=== PATIENT | male | born 1955 | race Caucasian/White ===

== ENCOUNTER 2022-08-22 06:25 | Day surgery (SDC) | payer OTHER ==
[~2022-08-22] VITALS: Ht 182.9 cm; Wt 101.8 kg
[~2022-08-22 06:25] MED LIST: B COMPLEX1 EACH PO; PROBIOTIC1 EAC1 PO
[2022-08-22] MEDS ORDERED: KRILL OIL500 MG PO (06:45)
[2022-08-22] MEDS ORDERED: VITAMIN D325 MC4 PO (06:45)
--- NOTE | 2022-08-22 08:10 | NUR ---
08/22/22 0810 Andressa Antony 0757 PATIENT ARRIVES TO PACU RESTING WITH EYES CLOSED. AWAKENS WITH VERBAL STIMULI. RESP EVEN AND UNLABORED, SNORING ON ARRIVAL WITH PERIODS OF APNEA, FOLLOWS COMMANDS TO TAKE DEEP BREATHS. ROOM AIR SATS >90%. 0805 PATIENT CONTINUES TO NEED REMINDERS TO TAKE A BREATH, BUT LESS FREQUENTLY.HOB ELEVATED SNORING IMPROVING. PATIENT DESATS TO 90%. NC ON AT 2L.
--- NOTE | 2022-08-22 08:27 | NUR ---
PT ALERT, ORIENTED AND SUPPORTED BY HIS MIKAYLA.10 YRS SINCE PTS' LAST SCOPE, PREP ENDURED. MIKAYLA WILL REMAIN FOR DC, PT REQUESTED PRAYER, WILL FOLLOW NEEDED
--- NOTE | 2022-08-22 09:16 | OR ---
[facility] [address], [place] [address] Signed DATE OF OPERATION: 08/22/2022 SURGEON: Jeison Huerta MD PREOPERATIVE DIAGNOSES: 1. Long redundant colon. 2. Internal hemorrhoids. 3. Mother with multiple colonic polyps. 4. Possible irritable bowel syndrome. 5. Mild pruritus ani.. POSTOPERATIVE DIAGNOSES: 1. Long redundant colon. 2. Minimal to moderate internal hemorrhoids. PROCEDURE: Colonoscopy without biopsy. ESTIMATED BLOOD LOSS: None. INDICATIONS: Sriram is a 67-year-old gentleman, asked to see me for his 2nd colonoscopy. He underwent a screening colonoscopy in 2013 at the age of 58 [address] Otilio Faustin. He had a long redundant colon with internal hemorrhoids. At that time, he did well with Versed and Demerol. He had been asked to follow up in 10 years. He now knows that his mother had to go every five years for multiple colonic polyps. In that regard, he should come every five years as well. There is consideration that he has irritable bowel syndrome. Currently, he has no lower GI complaints. 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 As a result, he does suffer with mild pruritus ani. He said he responded very well to conservative treatment. In the office, I gave him a pamphlet on colonoscopy. He understands the nature of the test. There is risk including, but not limited to gas bloating, crampy abdominal pain, bleeding, perforation requiring surgery, and missed diagnosis. We also had reviewed the written instructions for a bowel prep line by line. He understands the need for IV conscious sedation. He had expressed understanding and wished to proceed. PROCEDURE NOTE: Sriram was taken into our endoscopy suite and placed in the left lateral decubitus position. I had explained to Sriram that with his mother's history, he should come Electronically Signed By: JEISON HUERTA MD 08/22/22 0916 PATIENT NAME: SRIRAM ERVIN OPERATIVE REPORT DATE OF : 55 REPORT #: [id number] PHYSICIAN: JEISON HUERTA MD PCP: DAVID MOCTEZUMA MD REPORT IS CONFIDENTIAL AND NOT TO BE RELEASED WITHOUT AUTHORIZATION [facility] [address], [place] [address] Signed every five years. We ended up giving him 12 mg of Versed and 150 mcg of fentanyl to cover the case. Even then, he was frequently awake and in pain and we had to use abdominal compression in order to advance the scope. In the future, he would definitely be safer and better served with monitored anesthesia care and propofol infusion. Particularly as he gets older, the risk of perforation increases. He indeed has a long redundant colon. It took a while to get through his colon. Fortunately, his prep was pretty good. There were a few years we had to suction out until clear. In the future, he probably should consider some additional bowel prep. Eventually, we made it to the cecum. We had taken pictures throughout for photodocumentation. The scope was then slowly withdrawn. We saw no polyps throughout the entire colon. There were no diverticula. The rectum was unremarkable. Upon retroflexion of scope, he does have minimal to moderate internal hemorrhoid columns. After this, the gas was suctioned out and the colonoscope removed. Sriram tolerated the procedure quite well. RECOMMENDATIONS: Sriram can return in 5 years for repeat colonoscopy due to his mother's history. He should consider monitored anesthesia care in the future. He should consider a double bowel prep as well. Jeison Huerta MD ALB/MODL /[id number] cc: MD David Logan MD Copies: JEISON HUERTA MD, ROBERT D DMD ~ Electronically Signed By: JEISON HUERTA MD 08/22/22 0916 PATIENT NAME: SRIRAM ERVIN OPERATIVE REPORT DATE OF : 55 REPORT #: [id number] PHYSICIAN: JEISON HUERTA MD PCP: DAVID MOCTEZUMA MD REPORT IS CONFIDENTIAL AND NOT TO BE RELEASED WITHOUT AUTHORIZATION
== END 2022-08-22 08:45 | disposition home or self-care (01) ==
LOC: DS 06:25
PROVIDERS: ATTEND Colon & Rectal Surgery
PROC: 0DJD8ZZ Inspection of Lower Intestinal Tract, Via Natural or Artificial Opening Endoscopic (ICD-10-PCS; principal; 2022-08-22 07:30)
DX: Z12.11 Encounter for screening for malignant neoplasm of colon (principal); K58.9 Irritable bowel syndrome, unspecified; Z83.71 Family history of colonic polyps; Z87.891 Personal history of nicotine dependence; Q43.8 Other specified congenital malformations of intestine; K64.8 Other hemorrhoids
CPT/HCPCS: 99153; G0500; J2250; J3010; J7121

== ENCOUNTER 2025-01-11 13:08 | Emergency (ER) | payer MEDICARE, OTHER ==
[~2025-01-11] VITALS: Ht 182.9 cm; Wt 95.4 kg
[~2025-01-11 13:08] MED LIST changes: +KRILL OIL500 MG PO; +VITAMIN D325 MC4 PO
[2025-01-11 13:32] LABS: BASOPHILS 0.4 % (0.2-1.2); BILIRUBIN, URINE NEGATIVE (negative); BLOOD/HGB, URINE TRACE-L (Negative); EOSINOPHILS 0.2 % (0.8-7.0); HEMATOCRIT 49.8 % (40.1-51.0); HEMOGLOBIN 16.9 g/dL (13.7-17.5); KETONE, URINE TRACE (Negative); LEUK ESTERASE, URINE NEGATIVE (negative); LYMPHOCYTES 13.7 % (21.8-53.1); MCH 33.1 PG (25.7-32.2); MCHC 33.9 g/dL (32.3-36.5); MCV 97.6 fL (79.0-92.2); MONOCYTES 7.2 % (5.3-12.2); NITRITE, URINE NEGATIVE (negative); PLATELET COUNT 249 K/uL (163-337)
[2025-01-11 13:42] LABS: BACTERIA, URINE NONE SEEN /hpf (negative); CASTS, URINE NONE SEEN \\lpf; CRYSTALS, URINE NONE SEEN (0-1+); EPITHELIAL CELLS, URINE SQUAMOUS 1+ /lpf (0-1+); REFLEX CULTURE, URINE Yes (No)
[2025-01-11 13:43] LABS: COLLECTION TYPE, URINE CLEAN CATCH
[2025-01-11 13:48] LABS: ALBUMIN 3.9 g/dL (3.4-5.0); ANION GAP 10.1 (7-21); BILIRUBIN, TOTAL 1.4 mg/dL (0.2-1.0); BUN/CREATININE RATIO 15.74 (6.0-28.6); CALCIUM 9.9 mg/dL (8.5-10.1); CREATININE, SERUM 1.08 mg/dL (0.70-1.30); POTASSIUM 4.1 mmol/L (3.5-5.1); PROTEIN, TOTAL 7.8 g/dL (6.4-8.2)
[2025-01-11] MEDS ORDERED: HYDROmorphone HCL 1 MG/ML SYR IV ONE (14:15)
[2025-01-11] MEDS ORDERED: ondansetron HCL 4 MG/2 ML VIAL IV ONE (14:15)
[2025-01-11] MEDS ORDERED: SODIUM CHLORIDE 0.9% 1,000 ML IV PRN (14:15)
[2025-01-11] MEDS ORDERED: ONDANSETRON ODT4 MG PO (14:55)
[2025-01-11] MEDS ORDERED: CEPHALEXIN500 M1 PO (15:00)
[2025-01-11 15:18] VITALS: BP 132/91
[2025-01-12] MEDS ORDERED: CEFDINIR300 MG PO (11:37)
[2025-01-12] MEDS ORDERED: ROSUVASTATIN CA20 MG PO (15:25)
== END 2025-01-11 15:22 | disposition home or self-care (01) ==
LOC: ED 13:08
PROVIDERS: Emergency Medicine
DX: N39.0 Urinary tract infection, site not specified (principal); R11.2 Nausea with vomiting, unspecified
CPT/HCPCS: 36415; 80053; 81001; 83690; 85025; 87088; 96374; 96375; 99284-25; J1171; J2405; J7030

== ENCOUNTER 2025-01-12 11:06 | Inpatient (IN) | payer MEDICARE, OTHER ==
[~2025-01-12] VITALS: Ht 182.9 cm; Wt 95.5 kg
[~2025-01-12 11:06] MED LIST changes: +CEPHALEXIN500 M1 PO; +ONDANSETRON ODT4 MG PO
--- OUTSIDE RECORDS SUMMARY | 2025-01-12 11:13 | XMS ---
PreManage Notification: MAGALI ERVIN Security Curator Of Collections Events No recent Security Events currently on file CRITERIA MET - [facility] - 2 Visits in 30 Days CARE PROVIDERS IVETTE REED [facility]: [facility] PHONE: Unknown JEISON VILLALOBOS [facility] Current PHONE: Unknown Kristina has no Care Guidelines for this patient. Cynthia VISIT COUNT (12 MO[address] [facility] TOTAL 2 NOTE: Visits indicate total known visits. ED/UCC VISIT TRACKING (12 MO.) 01/12/2025 11:07 CINDA Lara OR TYPE: Emergency COMPLAINT: - CONSTIPATION 01/11/2025 13:09 CINDA Lara [place] TYPE: Emergency COMPLAINT: - ABDOMINAL PAIN INPATIENT VISIT TRACKING (12 MO.) No inpatient visits to display in this time frame [email or web address]
[2025-01-12] MEDS ORDERED: CEFDINIR300 MG PO (11:37)
[2025-01-12] MEDS ORDERED: ondansetron HCL 4 MG/2 ML VIAL IV ONE (12:15)
[2025-01-12] MEDS ORDERED: HYDROmorphone HCL 1 MG/ML SYR IV ONE (12:15)
[2025-01-12] MEDS ORDERED: SODIUM CHLORIDE 0.9% 1,000 ML IV ONE (12:15)
[2025-01-12 12:21] LABS: BASOPHILS 0.3 % (0.2-1.2); EOSINOPHILS 0 % (0.8-7.0); HEMOGLOBIN 16.4 g/dL (13.7-17.5); LYMPHOCYTES 5.1 % (21.8-53.1); MCH 33.8 PG (25.7-32.2); MCHC 34.2 g/dL (32.3-36.5); MONOCYTES 9.4 % (5.3-12.2); NEUTROPHILS 84.8 % (34.0-67.9); PLATELET COUNT 236 K/uL (163-337); RBC 4.85 M/uL (4.63-6.08)
[2025-01-12 12:36] LABS: ALBUMIN 3.6 g/dL (3.4-5.0); ALBUMIN/GLOBULIN RATIO 0.97 (1.1-2.4); ANION GAP 10.7 (7-21); BILIRUBIN, TOTAL 1.4 mg/dL (0.2-1.0); BUN/CREATININE RATIO 17.24 (6.0-28.6); CALCIUM 9.5 mg/dL (8.5-10.1); CREATININE, SERUM 1.16 mg/dL (0.70-1.30); POTASSIUM 4.7 mmol/L (3.5-5.1); PROTEIN, TOTAL 7.3 g/dL (6.4-8.2)
[2025-01-12 13:00] LABS: BILIRUBIN, URINE POSITIVE (negative); BLOOD/HGB, URINE TRACE-I (Negative); KETONE, URINE TRACE (Negative); LEUK ESTERASE, URINE NEGATIVE (negative); NITRITE, URINE NEGATIVE (negative)
[2025-01-12 13:12] LABS: BACTERIA, URINE NONE SEEN /hpf (negative); CASTS, URINE NONE SEEN \\lpf; COLLECTION TYPE, URINE CLEAN CATCH; CRYSTALS, URINE NONE SEEN (0-1+); EPITHELIAL CELLS, URINE SQUAMOUS 2+ /lpf (0-1+); REFLEX CULTURE, URINE No (No)
[2025-01-12] MEDS ORDERED: LACTATED RINGER'S 1,000 ML IV SCH ×3 (14:15→20:30)
[2025-01-12] MEDS ORDERED: ROSUVASTATIN CA20 MG PO (15:25)
[2025-01-12] MEDS ORDERED: HYDROmorphone HCL 1 MG/ML SYR IV PRN ×2 (17:45→18:00)
[2025-01-12] MEDS ORDERED: CEFTRIAXONE SODIUM 1 GM in SODIUM CHLORIDE 0.9% 100 ML IV ONE (17:45)
[2025-01-12] MEDS ORDERED: ondansetron HCL 4 MG/2 ML VIAL IV PRN ×2 (18:00→20:30)
[2025-01-12 18:31] VITALS: BP 142/74
[2025-01-12 19:25] VITALS: BP 142/74
--- NOTE | 2025-01-12 19:34 | NUR ---
1823 - PT ADMITTED TO ROOM 112 FROM ER VIA STRETCHER, NGT IN PLACE, DRAINIG BROWININGSH COLORED DRAINAGE, ON LIWS. PT WALKED TO [facility], TOLERATED WELL VOIDED RED-ORANGE COLORED URINE, SAMPLE WILL BE SENT TO LAB. 1852 - LR IVF DECREASED TO 85CC/HR IV SITE RAC. 1857 - MEDICATED WITH DILAUDID 0.5MG IV PER ABD PAIN. ABD FIRM, TENDER SLIGHTLY DISTENDID. NO C/O N/V. NPO. SWABS AT BEDSIDE. ORIENTED TO ROOM AND HOSP PROCEDURES AND TO ROOM. AWARE OF NPO REASONING AND OF HOB ELEVATION TO 30o. FAMILY AND PT STATED UNDERSTANDING.
--- NOTE | 2025-01-12 19:43 | NUR ---
REPORT RECEIVED FROM DORY TOWNSEND. PATIENT RESTING IN BED WITH EYES CLOSED, RESPIRATIONS EVEN AND UNLABORED. NG TUBE IN PLACE, SECURED WITH NARE CLIP. NO NEEDS, CALL LIGHT IN REACH.
[2025-01-12] MEDS ORDERED: ENOXAPARIN SODIUM 40 MG/0.4 ML SYR SUB-Q SCH (20:25)
[2025-01-12] MEDS ORDERED: LACTATED RINGER'S 1,000 ML IV ONE (20:30)
[2025-01-12] MEDS ORDERED: MORPHINE SULFATE 10 MG/ML VIAL IV PRN (20:30)
[2025-01-12] MEDS ORDERED: KETOROLAC TROMETHAMINE 30 MG/ML VIAL IV PRN (20:30)
--- NOTE | 2025-01-12 20:56 | NUR ---
ivf BOLUS STARTED, DID NOT TOLERATED IVF INFUSING AT 2000CC/HR, RATE DECREAED TO 999 FOR COMFORT.
[2025-01-12] MEDS ORDERED: KETOROLAC TROMETHAMINE 15 MG/ML VIAL IV PRN (21:00)
[2025-01-12] MEDS ORDERED: FAMOTIDINE 20 MG/ 2 ML VIAL IV SCH ×2 (21:00)
[2025-01-12 21:17] VITALS: BP 139/67
--- NOTE | 2025-01-12 21:21 | NUR ---
SENIOR VICE PRESIDENT AND CHIEF INFORMATION OFFICER OBTAINED VITALS AND I&O. PT STATES NO NEEDS AT THIS TIME. CALL LIGHT WITHIN REACH.
[2025-01-12 21:40] VITALS: BP 139/67
--- NOTE | 2025-01-12 21:40 | NUR ---
SCHEDULED MEDS GIVEN PER ORDER. ASSESSMENT COMPLETE. PATIENT DENIES PAIN, CONTINUOUS IVF CONTINUING PER ORDER. NO NEEDS AT THIS TIME, CALL LIGHT IN REACH.
[2025-01-12] MEDS ORDERED: CEFAZOLIN SODIUM 2 GM/20 ML SYR IV SCH (22:00)
--- NOTE | 2025-01-12 23:21 | NUR ---
ROUNDED ON PATIENT, PATIENT RESTING WITH EYES CLOSED, RESPIRATIONS EVEN AND UNLABORED. NO FURTHER NEEDS, CONTINUOUS IVF INFUSING WITHOUT DIFFICULTY. CALL LIGHT IN REACH
[2025-01-13] VITALS (11 sets, daily range): BP systolic 139–159; BP diastolic 68–81
--- NOTE | 2025-01-13 01:42 | NUR ---
ALLIED HEALTH INSTRUCTOR OBTAINED VITALS. NO NEW I&O AT THIS TIME. SCDS PLACED ON PT LEGS. PT STATES NO FURTHER NEEDS AT THIS TIME. CALL LIGHT WITHIN REACH.
--- NOTE | 2025-01-13 03:35 | NUR ---
CALL LIGHT ANSWERED. PT NEEDED TO HAVE BM. ASSURANCE SENIOR MANAGER SBA FOR LINE MANAGEMENT TO BATHROOM. PT INSTRUCTED TO USE BATHROOM CALL LIGHT WHEN DONE. BATHROOM CALL LIGHT ANSWERED. PT ASSISTED BACK TO BED. NG TUBE RECONNECTED TO SUCTION AND SCDS BACK ON. PT STATES NO FURTHER NEEDS AT THIS TIME. CALL LIGHT WITHIN REACH.
--- NOTE | 2025-01-13 04:19 | NUR ---
CALL LIGHT ANSWERED. PATIENT UP TO RESTROOM WITH MINIMAL SBA. LIQUID BOWEL MOVEMENT PER PATIENT, BROWN IN COLOR. PATIENT UP TO CHAIR PER REQUEST HE STATES THE BED IS GETTING UNCOMFORTABLE. DENIES ANY NEEDS, CALL LIGHT IN REACH.
--- NOTE | 2025-01-13 05:27 | NUR ---
PATIENT IN BED, VS OBTAINED AND RECORDED. BOWEL SOUNDS AUSCULTATED, ACTIVE BOWEL SOUNDS. PATIENT HAS HAD MULTIPLE BOWEL MOVEMENTS TONIGHT, STATES THAT HE IS FEELING IMPROVED. NG TUBE IN PLACE ON LIWS. SCD IN PLACE. CONTINUOUS IVF INFUSING PER ORDER. NO FURTHER NEEDS, CALL LIGHT IN REACH
[2025-01-13 05:33] LABS: EOSINOPHILS 0.7 % (0.8-7.0)
[2025-01-13 05:36] LABS: BASOPHILS 0.7 % (0.2-1.2); HEMATOCRIT 46.4 % (40.1-51.0); HEMOGLOBIN 15.5 g/dL (13.7-17.5); LYMPHOCYTES 12.1 % (21.8-53.1); MCH 33.7 PG (25.7-32.2); MCHC 33.4 g/dL (32.3-36.5); MCV 100.9 fL (79.0-92.2); MONOCYTES 12.7 % (5.3-12.2); NEUTROPHILS 73.6 % (34.0-67.9); PLATELET COUNT 221 K/uL (163-337)
[2025-01-13 05:47] LABS: ALBUMIN 3.2 g/dL (3.4-5.0); ALBUMIN/GLOBULIN RATIO 0.89 (1.1-2.4); BILIRUBIN, TOTAL 0.8 mg/dL (0.2-1.0); BUN/CREATININE RATIO 18.18 (6.0-28.6); CALCIUM 8.7 mg/dL (8.5-10.1); CREATININE, SERUM 1.1 mg/dL (0.70-1.30); PROTEIN, TOTAL 6.8 g/dL (6.4-8.2)
--- NOTE | 2025-01-13 06:27 | NUR ---
SCHEDULED MED ADMINISTERED PER ORDER. NEW IVF BAG HUNG, JUICE GIVEN TO PATIENT PER REQUEST. FRESH WATER PROVIDED. PATIENT SITTING UP IN BED, HE REPORTS NO PAIN AND DENIES ANY NEEDS. CALL LIGHT IN REACH.
--- NOTE | 2025-01-13 07:11 | NUR ---
REPORT RECEIVED FROM SHOE SINGER DORY CALDERON. PATIENT IS LYING IN BED WITH EYES CLOSED AND RESPIRATIONS ARE EVEN AND UNLABORED. NG IN PLACE. CALL LIGHT AND PERSONAL BELONGINGS ARE WITHIN REACH.
--- NOTE | 2025-01-13 07:30 | NUR ---
UR CLINICAL REVIEW: 2 MN KEVIN, MEETS INPT FOR SMALL BOWEL OBSTRUCTION NG TUBE, IV ANTIBIOTICS, NPO, IV FLUIDS MEDICARE INPT 01/12/25 @ 2495 ORDER MATCHES REG NO AUTH REQUIRED PER MEDICARE RULES PLAN TO DC TO HOME WHEN MEDICALLY STABLE.
--- NOTE | 2025-01-13 09:10 | NUR ---
PATIENT IS LYING IN BED WITH HOB ELEVATED. PATIENT IS ALERT AND ORIENTED TIMES FOUR. PATIENT LAST BM WAS 01/12/25. PATIENT IS A SBA. SCD'S ON. CARDIAC WITH NORMAL S1 AND S2 ON AUSCULTATION. RADIAL AND PEDAL PULSES ARE STRONG BILATERALLY. NO EDEMA NOTED. SENSATION INTACT WITH NO COMPLAINTS OF NUMBNESS OE TINGLING. CAPILLARY REFILL IN THE UPPER AND LOWER EXTREMITIES IS LESS THAN 3 SECONDS. IV SITE FLUSHED WITH 10 ML NORMAL SALINE. IV DRESSING IS CLEAN, DRY, AND INTACT. LR IS INFUSING AT 125 ML/HR. PATIENT WITH NO COMPLAINTS OF PAIN OR NAUSEA. PATIENT IS ON A CLEAR LIQUID DIET. NG TUBE CONNECTED TO LOW INTERMITTENT SUCTION. BOWEL TONES ARE ACTIVE IN ALL FOUR QUADRANTS. NG TUBE WITH BROWN DRAINAGE NOTED IN THE SUCTION CANISTER. RIGHT SIDE OF THE ABDOMEN IS TENDER. PATIENT REPORTS THE ABDOMINAL DISTENTION IS NORMAL. PATIENT IS ON ROOM AIR AND LUNG SOUNDS ARE CLEAR THROUGHOUT. PATIENT WITH PATIENT SITTING IN THE RECLINER AT BEDSIDE. PATIENT STATED NO FURTHER NEEDS AT THIS TIME. CALL LIGHT AND PERSONAL BELONGINGS ARE WITHIN REACH.
--- NOTE | 2025-01-13 09:33 | HP ---
[facility] [address], [place] [address] Signed ADMISSION DATE: 01/12/2025 REASON FOR ADMISSION: Distal small bowel obstruction. HISTORY OF PRESENT ILLNESS: This 69-year-old white man is the patient of Dr. 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 He was seen yesterday in the emergency room with vague abdominal pain, mildly elevated white count of 13,000. He was feeling improved and left the ER, but returned later today in approximately noon. He had undergone a CT scan a month previously for vague abdominal pain at that time also. There were no specific findings then. Upon his return, he had nausea and vomiting and obvious evidence of bowel obstruction. A nasogastric tube was placed which drained a considerable amount of bilious fluid. A CT scan was performed which showed a relatively significant bowel obstruction with a transition point noted in the right lower abdomen. I reviewed that scan confirming those findings. There were no other abnormalities noted. The appendix was considered normal. The patient has undergone colonoscopy in the past year or so by Dr. Antelmo Dallas. There is no sign of abnormality. He had a colonoscopy 5 years previous to that, which was also said to be normal. Incidental findings on the CT scan showed a large bladder calculus. His chest x-ray performed following nasogastric tube placement showed the tip in the gastric fundus. PAST MEDICAL HISTORY: Relatively unremarkable. MEDICATIONS: He takes no routine medications generally speaking. He has been on. 1. Cefdinir. 2. Simvastatin in recent times. ALLERGIES: He has no known drug allergies. PAST SURGICAL HISTORY: He has had no abdominal surgery of any sort. SOCIAL HISTORY: He does drink one six-pack of beer weekly, but denies any drug use and has had no other Electronically Signed By: WEN TINAJERO MD 01/13/25 0933 PATIENT NAME: MAGALI ERVIN HISTORY AND PHYSICAL DATE OF : 55 REPORT #: [id number] PHYSICIAN: WEN TINAJERO MD PCP: DAVID MOCTEZUMA MD REPORT IS CONFIDENTIAL AND NOT TO BE RELEASED WITHOUT AUTHORIZATION [facility] [address] [place] [id number] Signed operations. His bladder stone is apparently known to him from the past. An appointment is arranged with Dr. Mayo related to the bladder stone. REVIEW OF SYSTEMS: He denies any shortness of breath or chest pain. He does feel thirsty. He has been with low oral intake for the past three days. Denies any precordial chest pain or shortness of breath. PHYSICAL EXAMINATION: GENERAL: Well-developed, well-nourished white man who looks to be in no significant distress at this time. VITAL SIGNS: Height 6 feet 0 inches, weight is 93 kg, BMI 27.9. CHEST: Trachea is midline. HEENT: Mucous membranes are quite dry. Nasogastric tube was draining rather thick greenish yellow enteric contents. ABDOMEN: Nondistended. There is tenderness in the right lower abdomen, but no mass. He has not had discernible ascites. EXTREMITIES: Showed no clubbing, cyanosis, or edema. LABORATORY STUDIES: Showed a white count of 11.13, hematocrit 48, platelets 236,000. Chem profile is essentially normal. Bilirubin is elevated at 1.4. Liver enzymes normal. Lipase 17. Urinalysis showed 7-11 red cells per high-power field and 4-6 white cells. LABORATORY DATA: Imaging study reviewed, confirmed small bowel obstruction, but no other abnormality and incidental note is made of the bladder stone, which is large and on the right side of the bladder. ASSESSMENT: The patient had a small bowel obstruction which has evolved over the past few days. He has a concurrent bladder stone which is large and unlikely to be causing any particular problem at this time. Nasogastric tube decompression has been initiated. It is notable that he has not had abdominal operations and he has no clinical evidence of inguinal or incisional hernia at this time. If prompt resolution of the bowel obstruction is not noted, small bowel follow-through may be indicated to assess the degree of obstruction. Given its location, which is relatively distal in the bowel of his symptoms has been somewhat delayed. The possibility of colonic neoplasm or other neoplasm accounting for Electronically Signed By: WEN TINAJERO MD 01/13/25 0933 PATIENT NAME: MAGALI ERVIN HISTORY AND PHYSICAL DATE OF : 55 REPORT #: [id number] PHYSICIAN: WEN TINAJERO MD PCP: DAVID MOCTEZUMA MD REPORT IS CONFIDENTIAL AND NOT TO BE RELEASED WITHOUT AUTHORIZATION [facility] [address], [place] [address] Signed his obstruction is acknowledged and was discussed with him. He has had colonoscopy in the past year or so, which was said to be negative and he has no family history of colon cancer or bowel cancer of any other sort. MD NEEMA Colon/GABI /[id number] cc: Dr. Too Moctezuma MD Copies: DAVID MOCTEZUMA DMD ~ Electronically Signed By: WEN TINAJERO MD 01/13/25 0933 PATIENT NAME: MAGALI ERVIN HISTORY AND PHYSICAL DATE OF : 55 REPORT #: [id number] PHYSICIAN: WEN TINAJERO MD PCP: DAVID MOCTEZUMA MD REPORT IS CONFIDENTIAL AND NOT TO BE RELEASED WITHOUT AUTHORIZATION
[2025-01-13] MEDS ORDERED: FISH OIL 1,0001 EAC6 PO (09:43)
[2025-01-13] MEDS ORDERED: VITAMIN D325 MCG PO (09:44)
--- NOTE | 2025-01-13 09:44 | NUR ---
MED REC COMPLETE
--- NOTE | 2025-01-13 10:24 | NUR ---
PATIENT IS LYING IN BED WITH HOB. NG TUBE IN PLACE. PATIENT WITH EYES OPEN AND IS LOOKING ON THEIR PHONE. PATIENT RESPIRATIONS ARE EVEN AND UNLABORED. PATIENT IS SITTING IN THE RECLINER AT BEDSIDE. CALL LIGHT AND PERSONAL BELONGINGS ARE WITHIN REACH.
--- NOTE | 2025-01-13 10:42 | NUR ---
VISITED DURING SPIRITUAL CARE ROUNDS. PT SUPPORTED BY SPOUSE IN ROOM. BOTH IN OVERALL GOOD SPIRITS, NO IMMEDIATE NEEDS. SELF SEALING FUEL TANK REPAIRER PROVIDED SUPPORTIVE PRESENCE, HOSPITALITY, PRAYER.
--- NOTE | 2025-01-13 10:58 | NUR ---
ALERT AND ORIENTED IN ROOM AT THIS TIME. FAMILY MEMBER IN ROOM. PATIENT LIVES IN [address], NO DIFFICULTIES WITH STAIRS AT BASELINE. NO DME. PATIENT DRIVES. HAS NO DIFFICULTY PAYING UTILTIES OR OBTAINING FOOD/MEDICATIONS. INDEPENDENT AND STILL WORKS. NO KNOWN CM NEEDS AT THIS TIME. PLANNING TO RETURN HOME WITH WHEN MEDICALLY STABLE.
--- NOTE | 2025-01-13 11:21 | NUR ---
PATIENT IS SITTING ON THE COUCH WITH HIS AND DAUGHTER IN THE ROOM. PATIENT NG TUBE IN PLACE BUT IS NOT CONNECTED TO SUCTION AT THIS TIME. CALL LIGHT AND PERSONAL BELONGINGS ARE WITHIN REACH.
--- NOTE | 2025-01-13 12:08 | NUR ---
PATIENT RETURNED TO BED WITH THE HOB ELEVATED. PATIENT NG TUBE RECONNECTED TO INTERMITTENT WALL SUCTION. NEW GOWN PROVIDED. PATIENT LUNCH TRAY DELIVERED. PATIENT STATED NO FURTHER NEEDS AT THIS TIME. CALL LIGHT AND PERSONAL BELONGINGS ARE WITHIN REACH.
--- NOTE | 2025-01-13 13:16 | NUR ---
HOURLY ROUNDING. PATIENT IN BED FAMILY IS AT BEDSIDE, PATIENT REPORTS A BIT OF STOMACH DICOMFORT. PATIENT HAS THE HIC CUPS. CALL LIGHT HAS BEEN PLACED WITHIN REACH. NO REQUEST FROM PATIENT AT THIS TIME
--- NOTE | 2025-01-13 13:41 | NUR ---
PATIENT IS LYING IN BED WITH HOB ELEVATED. PATIENT WITH EYES OPEN AND RESPIRATIONS ARE EVEN AND UNLABORED. IMAGING IS IN THE ROOM AT THIS TIME. NG TUBE IN PLACE. CALL LIGHT AND PERSONAL BELONGINGS ARE WITHIN REACH.
--- NOTE | 2025-01-13 14:13 | NUR ---
1400 ANCEF ADMINISTERED PER THE EMAR. IV SITE FLUSHED WITH 10 ML NORMAL SALINE. IV DRESSING IS CLEAN, DRY, AND INTACT. IV WITH LR INFUSING AT 125 ML/HR. PATIENT WITH NO COMPLAINTS OF PAIN OR NAUSEA. PATIENT WITH WITH NO TENDERNESS OR DISTENTION IN THE ABDOMEN NOTED. BOWEL TONES ARE ACTIVE IN ALL FOUR QUADRANTS. PATIENT STATED NO FURTHER NEEDS AT THIS TIME. CALL LIGHT AND PERSONAL BELONGINGS ARE WITHIN REACH.
--- NOTE | 2025-01-13 15:11 | NUR ---
IV PUMP REPROGRAMMED FOR EXTRA FLUID IN THE BAG. PATIENT IS LYING IN BED WITH HOB ELEVATED. PATIENT WITH EYES OPEN AND RESPIRATIONS ARE EVEN AND UNLABORED. PATIENT IS ON HIS PHONE. NG TUBE IS CLAMPED. PATIENT IS SITTING IN THE RECLINER AT BEDSIDE. PATIENT STATED NO FURTHER NEEDS AT THIS TIME. CALL LIGHT AND PERSONAL BELONGINGS ARE WITHIN REACH.
--- NOTE | 2025-01-13 16:23 | NUR ---
NEW BAG OF LR STARTED AT THIS TIME. IV SITE FLUSHED WITH 10 ML NORMAL SALINE. IV DRESSING IS CLEAN, DRY, AND INTACT. PATIENT WITH HIS AND DAUGHTER IN THE ROOM. PATIENT WITH NO COMPLAINTS OF PAIN OR NAUSEA AT THIS TIME. PATIENT STATED NO FURTHER NEEDS AT THIS TIME. CALL LIGHT AND PERSONAL BELONGINGS ARE WITHIN REACH.
--- NOTE | 2025-01-13 16:40 | NUR ---
IV FLUSHED WITH 10 ML NORMAL SALINE AND IS SALINE LOCKED. IV DRESSING IS CLEAN, DRY, AND INTACT. IMAGING IS IN THE ROOM AT THIS TIME. PATIENT STATED NO FURTHER NEEDS. CALL LIGHT AND PERSONAL BELONGINGS ARE WITHIN REACH.
--- NOTE | 2025-01-13 17:11 | NUR ---
PATIENT IN BED AT THIS TIME. THIS HOME ECONOMIST CONSUMER SERVICE SET PATIENT UP FOR SHOWER, PATIENT ABLE TO SHOWER INDEPENDENTLY. THIS HOME ECONOMIST CONSUMER SERVICE PROVIDED PATIENT WITH FRESH LINENS ON BED, FRESH GOWN AND NEW SOCKS. DORY MARION IN ROOM AT THIS TIME TO RETAPE PATIENTS NG TUBE TO NOSE. CALL LIGHT WITHIN REACH, NO FURTHER NEEDS AT THIS TIME.
--- NOTE | 2025-01-13 17:16 | NUR ---
PATIENT COMPLETE IN THE SHOWER WITH ASSISTANCE FROM DAVE KU. PATIENT IS LYING IN BED WITH HOB ELEVATED. NG TUBE NOSE STICKER REPLACED. PATIENT REPORTS THE NG TUBE HAS NOT MOVED. NG TUBE IS ON INTERMITTENT WALL SUCTION. GREEN/BROWN FLUID IN THE SUCTION CANISTER AND NG TUBING AT THIS TIME. PATIENT WITH NO COMPLAINTS OF PAIN OR NAUSEA. IV SITE FLUSHED WITH 10 ML NORMAL SALINE AND LR IS INFUSING AT 125 ML/HR. IV DRESSING IS CLEAN, DRY, AND INTACT. PATIENT STATED NO FURTHER NEEDS AT THIS TIME. CALL LIGHT AND PERSONAL BELONGINGS ARE WITHIN REACH.
--- NOTE | 2025-01-13 18:09 | NUR ---
PATIENT IN BED AT THIS TIME. THIS CLOTH PRINTING BACK TENDER CHARTED I&O'S, DORY MARION CHARTED VITALS. CALL LIGHT WITHIN REACH, NO FURTHER NEEDS AT THIS TIME.
--- NOTE | 2025-01-13 18:21 | NUR ---
PATIENT IS LYING IN BED WITH HOB ELEVATED. PATIENT IS READING A BOOK AT THIS TIME. PATIENT WITH NO COMPLAINTS OF PAIN OR NAUSEA. PATIENT STATED NO FURTHER NEEDS AT THIS TIME. CALL LIGHT AND PERSONAL BELONGINGS ARE WITHIN REACH.
--- NOTE | 2025-01-13 19:28 | NUR ---
REPORT RECEIVED FROM DORY AMRION. PATIENT SITTING UPRIGHT IN BED READING BOOK, NG TUBE IN PLACE ON LIWS, RESPIRATIONS EVEN AND UNLABORED. HE DENIES ANY NEEDS, PERSONAL BELONGINGS ARE WITHIN REACH. CALL LIGHT IN REACH.
--- NOTE | 2025-01-13 20:50 | NUR ---
VS OBTAINED AND RECORDED. INTAKE AND OUTPUT DOCUMENTED. ASSESSMENT COMPLETE, PATIENT STATES ABD NORMAL DISTENSION, REPORTS MINOR PAIN TO PALPATION ON THE RUQ AND RLQ. BUT OTHERWISE REPORTS NO PAIN. ACTIVE BOWEL TONES. NG TUBE ON LIWS, CONTINUOUS IV FLUIDS CONTINUING TO INFUSE PER ORDER. PATIENT DENIES ANY FURTHER NEEDS AT THIS TIME, CALL LIGHT IN REACH.
--- NOTE | 2025-01-13 22:31 | NUR ---
SCHEDULED MED GIVEN PER ORDER. PATIENT RESTING, LIGHTS TURNED OFF PER REQUEST. NG TUBE REMAINS IN PLACE ON LIWS. IVF CONTINUING TO INFUSE WITHOUT DIFFICULTY. SCD IN PLACE, RESPIRATIONS EVEN AND UNLABORED. CALL LIGHT IN REACH
[2025-01-14] VITALS (10 sets, daily range): BP systolic 135–151; BP diastolic 66–74
--- NOTE | 2025-01-14 00:15 | NUR ---
ROUNDED ON PATIENT, PATIENT RESTING WITH EYES CLOSED, RESPIRATIONS EVEN AND UNLABORED. NG TUBE IN PLACE AND ON LIWS, IVF CONTINUING TO INFUSE WITHOUT DIFFICULTY. NO NEEDS IDENTIFIED, PERSONAL BELONGINGS WITHIN REACH. CALL LIGHT IN REACH.
--- NOTE | 2025-01-14 01:07 | NUR ---
IV PUMP ALARMING, NEW IVF BAG HUNG. INFUSING WITHOUT DIFFICULTY PER ORDER. PATIENT RESTING WITH EYES CLOSED, RESPIRATIONS EVEN AND UNLABORED. NG TUBE ON LIWS. NO NEEDS IDENTIFIED, CALL LIGHT IN REACH.
--- NOTE | 2025-01-14 02:50 | NUR ---
ROUNDED ON PATIENT. PATIENT RESTING WITH EYES CLOSED, RESPIRATIONS EVEN AND UNLABORED. NG TUBE ON LIWS, IVF CONTINUING TO INFUSE WITHOUT DIFFICULTY. NO NEEDS IDENTIFIED, CALL LIGHT IN REACH.
--- NOTE | 2025-01-14 04:15 | NUR ---
ROUNDED ON PATIENT, RESPIRATIONS EVEN AND UNLABORED. IVF CONTINUING TO INFUSE PER ORDER, NG TUBE ON LIWS. NO FURTHER NEEDS IDENTIFIED AT THIS TIME. CALL LIGHT IN REACH.
[2025-01-14 05:24] LABS: BASOPHILS 0.8 % (0.2-1.2); EOSINOPHILS 2.3 % (0.8-7.0); HEMATOCRIT 39.8 % (40.1-51.0); HEMOGLOBIN 13.2 g/dL (13.7-17.5); LYMPHOCYTES 16.1 % (21.8-53.1); MCH 33.3 PG (25.7-32.2); MCHC 33.2 g/dL (32.3-36.5); MCV 100.5 fL (79.0-92.2); MONOCYTES 15.6 % (5.3-12.2); NEUTROPHILS 64.9 % (34.0-67.9); PLATELET COUNT 198 K/uL (163-337); RBC 3.96 M/uL (4.63-6.08)
--- NOTE | 2025-01-14 05:56 | NUR ---
CRIMP SETTER OBTAINED VITALS AND I&O. PT STATES NO NEEDS AT THIS TIME. CALL LIGHT WITHIN REACH.
--- NOTE | 2025-01-14 06:18 | NUR ---
SCHEDULED MED GIVEN PER ORDER. INTAKE AND OUTPUT DOCUMENTED. BOWEL TONES ACTIVE, PATIENT DECLINES TENDERNESS. RESTING WITH EYES CLOSED, RESPONDS APPROPRIATELY TO QUESTIONS. SCD ON, IVF CONTINUING TO INFUSE PER ORDER. CALL LIGHT IN REACH, RESPIRATIONS EVEN AND UNLABORED.
--- NOTE | 2025-01-14 07:06 | NUR ---
REPORT RECEIVED FROM FLOOR SANDING MACHINE OPERATOR DORY CALDERON. PATIENT IS LYING IN BED WITH HOB ELEVATED. PATIENT WITH EYES OPEN AND RESPIRATIONS ARE EVEN AND UNLABORED. PATIENT STATED NO NEEDS AT THIS TIME. CALL LIGHT AND PERSONAL BELONGINGS ARE WITHIN REACH.
--- NOTE | 2025-01-14 08:45 | NUR ---
PATIENT IS SITTING ON THE COUCH WITH THE BLINDS OPEN. 0900 MEDICATIONS ADMINISTERED PER THE EMAR. PATIENT IS ALERT AND ORIENTED TIMES FOUR. PATIENT LAST BM 01/14/25. PATIENT IS A SBA. SCD'S ON. CARDIAC WITH NORMAL S1 AND S2 ON AUSCULTATION. RADIAL AND PEDAL PULSES ARE STRONG BILATERALLY. NO EDEMA NOTED. SENSATION INTACT WITH NO COMPLAINTS OF NUMBNESS OR TINGLING. CAPILLARY REFILL IN THE UPPER AND LOWER EXTREMITIES IS LESS THAN 3 SECONDS BILATERALLY. IV SITE FLUSHED WITH 10 ML NORMAL SALINE. LR IS INFUSING AT 125 ML/HR. IV DRESSING IS CLEAN, DRY, AND INTACT. PATIENT WITH NO NAUSEA OR PAIN. PATIENT IS ON A CLEAR LIQUID DIET. BOWEL TONES ARE ACTIVE IN ALL FOUR QUADRANTS. NG TUBE IN PLACE AND CONNECTED TO LOW INTERMITTENT WALL SUCTION. NO ABDOMINAL TENDERNESS NOTED. PATIENT REPORTS ABDOMINAL DISTENTION HAS RETURNED TO NORMAL. PATIENT IS ON ROOM AIR AND LUNG SOUNDS ARE CLEAR THROUGHOUT. PATIENT STATED NO FURTHER NEEDS AT THIS TIME. CALL LIGHT AND PERSONAL BELONGINGS ARE WITHIN REACH. PATIENT IS SITTING IN THE CHAIR AT BEDSIDE.
--- NOTE | 2025-01-14 09:25 | NUR ---
PATIENT IS IN BED AT THIS TIME, DAVE KINGS UNHOOKED HIS NG TUBE SO HE COULD USE THE REST ROOM, DAVE CHANGED BEDDING AND OFFERED A NEW GOWN. BRAND REPRESENTATIVE CHARTED VITALS AND I&O'S, IN ROOM WITH PATIENT. CALL LIGHT WITH IN REACH AND NOTHING ELSE NEEDED AT THIS TIME.
--- NOTE | 2025-01-14 09:26 | NUR ---
DAVE SAMUEL IS IN THE ROOM AT THIS TIME. DAVE STATES THE PATIENT IS IN THE BATHROOM. PATIENT IS SITTING IN THE RECLINER AT THIS TIME.
--- NOTE | 2025-01-14 10:31 | NUR ---
INTO SEE PATIENT. IM LETTER COMPLETED. NO FUTHER CM NEEDS.
--- NOTE | 2025-01-14 11:19 | NUR ---
PATIENT IS LYING IN BED WITH HOB ELEVATED. PATIENT IS WATCHING GOLF. NG TUBE REMAINS CONNECTED TO SUCTIONS. PATIENT STATED NO NEEDS AT THIS TIME. CALL LIGHT AND PERSONAL BELONGINGS ARE WITHIN REACH.
--- NOTE | 2025-01-14 12:01 | NUR ---
PATIENT IS LYING IN BED WITH HOB ELEVATED. PATIENT IS WATCHING GOLF ON TV. PATIENT IS WORKING ON LUNCH. PATIENT STATED NO FURTHER NEEDS AT THIS TIME. CALL LIGHT AND PERSONAL BELONGINGS ARE WITHIN REACH.
--- NOTE | 2025-01-14 13:06 | NUR ---
IV PUMP RESTARTED. PATIENT IS LYING IN BED WITH HOB ELEVATED. PATIENT CONTINUES WATCHING GOLF. DAVE SAMUEL IS IN THE ROOM AT THIS TIME. PATIENT STATED NO FURTHER NEEDS AT THIS TIME. CALL LIGHT AND PERSONAL BELONGINGS ARE WITHIN REACH.
--- NOTE | 2025-01-14 13:10 | NUR ---
PATIENT IS IN BED AT THIS TIME WATCHING TV, HOT HEAD MACHINE OPERATOR CHARTED VITALS AND I&O'S, EMPTIED NG CANISTER. HOT HEAD MACHINE OPERATOR OFFERED A SHOWER, PATIENT REFUSED, CALL LIGHT WITH IN REACH AND NOTHING ELSE NEEDED AT THIS TIME.
--- NOTE | 2025-01-14 14:33 | NUR ---
PATIENT IS LYING IN BED WITH HOB ELEVATED. 1400 ANCEF ADMINISTERED PER THE EMAR. PATIENT WITH NO COMPLAINTS OF PAIN OR NAUSEA. NG TUBE IS CLAMPED AT THIS TIME SO THE PATIENT CAN AMBULATE INDEPENDENTLY IN THE ROOM. IV SITE FLUSHED WITH 10 ML NORMAL SALINE AND LR IS INFUSING AT 125 ML/HR. IV DRESSING IS CLEAN, DRY, AND INTACT. BOWEL TONES ARE ACTIVE IN ALL FOUR QUADRANTS. PATIENT STATED NO FURTHER NEEDS AT THIS TIME. CALL LIGHT AND PERSONAL BELONGINGS ARE WITHIN REACH.
--- NOTE | 2025-01-14 15:00 | NUR ---
PATIENT IS SITTING UPRIGHT IN THE CHAIR AND THE NG TUBE IS CLAMPED AT THIS TIME. PATIENT REPORTS WANTING TO WAIT A LITTLE BIT LONGER BEFORE GETTING RECONNECTED TO SUCTION. PATIENT IS WATCHING TV. PATIENT STATED NO FURTHER NEEDS AT THIS TIME. CALL LIGHT AND PERSONAL BELONGINGS ARE WITHIN REACH.
--- NOTE | 2025-01-14 16:00 | NUR ---
REPORT RECEIVED FROM SANAM CONNORS. THIS RN INTRODUCED HERSELF TO THE PT. PT SITTING IN BED WITH NO REQUESTS AT THIS TIME. NG TO LIGEOVANNY, DRAINGIN PINK TINGED FLUID FROM HYDE ENSURE. CALL LIGHT WITHIN REACH.
--- NOTE | 2025-01-14 18:22 | NUR ---
PATIENT IS IN BED READING AT THIS TIME, SUPERVISOR ADVICE CHARTED VITALS AND I&O'S, GOT FRESH ICE WATER. CALL LIGHT WITH IN REACH AND NOTHING ELSE NEEDED AT THIS TIME.
--- NOTE | 2025-01-14 18:43 | NUR ---
Patient lying in bed watching TV. No request at this time. Call light at reach.
--- NOTE | 2025-01-14 19:43 | NUR ---
REPORT RECEIVED FROM DAY SHIFT RN. PT RESTING IN BED. PT DENIED ANY PAIN AT THIS TIME. SAFETY PRECAUTIONS MAINTIANED. CALL LIGHT WITHIN REACH. WILL CONTINUE TO MONITOR.
--- NOTE | 2025-01-14 20:30 | NUR ---
PT ASSESSED AND MEDICATIONS GIVEN. PT DENIED ANY PAIN. NG TUBE IN PLACE AND ATTACHED TO LOW INTERMITTENT SUCTION. LOW OUT PUT NOTED. IVF INFUSING PER ORDER. PT UP INDEPENDENTLY TO BATHROOM, GOOD OUTPUT NOTED. SAFETY PRECAUTIONS MAINTAINED. CALL LIGHT WITHIN REACH. WILL CONTINUE TO MONITOR.
[2025-01-15] VITALS (10 sets, daily range): BP systolic 143–155; BP diastolic 68–103
--- NOTE | 2025-01-15 00:16 | NUR ---
PT RESTING IN BED WITH EYES CLOSED. IVF INFUSING PER ORDERS. SAFETY PRECAUTIONS MAINTAINED. CALL LIGHT WITHIN REACH. WILL CONTINUE TO MONITOR.
--- NOTE | 2025-01-15 05:47 | NUR ---
PT RESTED WELL DURING THE SHIFT. VSS. NGT HOOKED UP TO LIWS, MODERATE OUTPUT NOTED. IVF INFUSING PER ORDER. ABX GIVEN PER ORDER. PT DENIED ANY PAIN OR NAUSEA DURING SHIFT. PT UP INDEPENDENTLY TO BATHROOM, GOOD OUTPUT NOTED. PT HAS A COUPLE BM'S DURING THE SHIFT. SAFETY PRECAUTIONS MAINTAINED. CALL LIGHT WITHIN REACH. WILL CONTINUE TO MONITOR.
--- NOTE | 2025-01-15 07:10 | NUR ---
RECIEVED REPORT FROM DORY SUÁREZ. ASSUMING CARE OF PT WITH DORY JAMES.
--- NOTE | 2025-01-15 08:13 | NUR ---
CLAMPED PT'S NG TUBE AND SALINE LOCKED IV FOR PT TO TRANSFER XRAY PER WC.
--- NOTE | 2025-01-15 08:30 | NUR ---
PATIENT IS AWAKE AND ORIENTED. THEY ARE ON A CLEAR LIQUID DIET AND REQUESTED BLACK COFFEE TO DRINK. IMAGING TOOK PATIENT BACK AT 0810. PATIENT RETURNED TO BED ONCE BROUGHT BACK. CALL LIGHT AND PERSONAL ITEMS ARE WITHIN REACH. ANOTHER CUP OF BLACK COFFEE WAS PROVIDED.
--- NOTE | 2025-01-15 08:57 | NUR ---
PT SITTING UP IN BED, NG TUBE CONNECTED TO LIS, IV FLUIDS INFUSING. PT DENIES PAIN/NAUSEA/SOB AT THIS TIME. PT STATE NO CURRENT NEEDS, CALL LIGHT WITHIN REACH.
--- NOTE | 2025-01-15 11:01 | NUR ---
NGT DC'D FROM SUCTION WHILE PT IN RESTROOM. PATIENT SITTING UP IN BED AFTER RESTROOM, LIS RECONNECTED TO NGT. PATIENT DENIES PAIN OR NAUSEA AT THIS TIME. NO FURTHER NEEDS STATED, CALL LIGHT AT REACH.
--- NOTE | 2025-01-15 12:19 | NUR ---
DR. TINAJERO IN ROOM TO VISIT WITH PATIENT AND FAMILY REGUARDING PLAN OF CARE. PATIENTS QUESTIONS ANWERED.
--- NOTE | 2025-01-15 12:24 | NUR ---
NGT DC'D PER DOCTOR ORDER. PATIENT TOLERATED WELL.FAMILY AT BEDSIDE AND CALL LIGHT AT REACH.
--- NOTE | 2025-01-15 13:15 | NUR ---
PT AMBULATING IN ROOM, DENIES ANY PAIN/NAUSEA AT THIS TIME, STATES NO CURRENT NEEDS, CALL LIGHT WITHIN REACH.
--- NOTE | 2025-01-15 15:47 | NUR ---
PT UP TO CHAIR, DENIES PAIN/NAUSEA AT THIS TIME. PT STATES NO CURRENT NEEDS, CALL LIGHT WITHIN REACH.
--- NOTE | 2025-01-15 17:55 | NUR ---
PT UP TO RESTROOM, STATES HE WOULD LIKE TO SHOWER AFTER, SHOWER SUPPLIES PROVIDED, PT AGREES TO USE CALL LIGHT WHEN READY TO SHOWER. CALL LIGHT WITHIN REACH.
--- NOTE | 2025-01-15 19:39 | NUR ---
REPORT RECEIVED FROM DAY SHIFT RN. PT UP IN CHAIR, FAMILY IN ROOM WITH PT. PT DENIED ANY PAIN. SAFETY PRECAUTIONS MAINTAINED. CALL LIGHT WITHIN REACH. WILL CONTINUE TO MONITOR.
--- NOTE | 2025-01-15 20:50 | NUR ---
PT ASSESSED AND MEDICATIONS GIVEN. PT DENIED ANY PAIN OR DISCOMFORT. PT VOIDING WITHOUT DIFFICULTY AND HAVING BM'S. VSS. IVF INFUSING PER ORDER. PT UP INDEPENDENTLY IN ROOM. SAFETY PRECAUTIONS MAINTAINED. CALL LIGHT WITHIN REACH. WILL CONTINUE TO MONITOR.
[2025-01-16] VITALS (10 sets, daily range): BP systolic 132–154; BP diastolic 73–83
--- NOTE | 2025-01-16 | NUR ---
PT RESTING IN BED WITH EYES CLOSED. SAFETY PRECAUTIONS MAINTAINED. CALL LIGHT WITHIN REACH. WILL CONTINUE TO MONITOR.
--- NOTE | 2025-01-16 06:22 | NUR ---
PT RESTED WELL THROUGHOUT THE SHIFT. VSS. PT CONTINUES TO HAVE BM'S. PT UP INDEPENDENTLY TO BATHROOM, GOOD OUTPUT NOTED. IVF INFUSING PER ORDER. PT CONTINUES TO DENY ANY PAIN OR NAUSEA. PER DOCTOR LIOR, DIET ORDER CHANGED TO REGULAR FROM CLEAR LIQUID. SAFETY PRECAUTIONS MAINTIANED. CALL LIGHT WITHIN REACH. WILL CONTINUE TO MONITOR.
[2025-01-16] MEDS ORDERED: IBUPROFEN 600 MG TAB PO PRN (07:30)
--- NOTE | 2025-01-16 07:30 | NUR ---
RECIEVED REPORT FROM DORY SUÁREZ. PT AMBULATING IN ROOM, STATES HE ORDERED HIS REGULAR DIET BREAKFAST. PT DENIES ANY CURRENT NEEDS, CALL LIGHT WITHIN REACH.
--- NOTE | 2025-01-16 08:08 | NUR ---
IMAGING CAME UP TO GET THE PATIENT AT THIS TIME. IV FLUIDS DISCONNECTED. IV FLUSHED WITH 10 ML NORMAL SALINE AND IS SALINE LOCKED. IV DRESSING IS CLEAN, DRY, AND INTACT. PATIENT REPORTS USING THE BATHROOM PRIOR TO GOING TO IMAGING.
--- NOTE | 2025-01-16 08:11 | NUR ---
PATIENT LEFT THE FLOOR AT THIS TIME FOR IMAGING.
[2025-01-16] MEDS ORDERED: FAMOTIDINE 20 MG TAB PO SCH (09:00)
--- NOTE | 2025-01-16 11:00 | NUR ---
HOURLY ROUNDING. PATIENT IS IN BED. HE REPORTS HIS STOMACH FEELING QWEEZY, NURSE HAS BEEN NOTIFIED. NO REQUEST FROM PATIENT AT THIS TIME. CALL LIGHT HAS BEEN PLACED WITHIN REACH. BOARD HAS BEEN UPDATED
--- NOTE | 2025-01-16 12:35 | NUR ---
PT UP TO CHAIR EATING LUNCH, STATES "I FEEL GREAT". PT DENIES ANY PAIN, NAUSEA, OR DISTENTION AT THIS TIME, STATES HE HAS BEEN HAVING FLATULENCE AND HAS HAD ANOTHER BM THIS AFTERNOON. PT STATES NO CURRENT NEEDS, CALL LIGHT WITHIN REACH.
--- NOTE | 2025-01-16 14:20 | NUR ---
IV SITE FLUSHED WITH 10 ML NORMAL SALINE AND IS SALINE LOCKED. IV DRESSING IS CLEAN, DRY, AND INTACT. PATIENT STATED HAVING A BOWEL MOVEMENT THAT WAS MORE FORMED AND NOT DARK IN COLOR. PATIENT LEFT THE FLOOR AT THIS TIME WITH IMAGING TO GET ANOTHER KUB AT THIS TIME.
--- NOTE | 2025-01-16 19:38 | NUR ---
REPORT RECEIVED FROM DAY SHIFT RN. PT RESTING IN BED. PT REQUESTING TO TAKE A SHOWER. SUPLLIES OBTAINED AND GIVEN TO PT. PT SL AND IV SITE COVERED. PT STABLE AND UP INDEPENDENTLY. SAFETY PRECAUTIONS MAINTAINED. CALL LIGHT WITHIN REACH. WILL CONTINUE TO MONITOR.
--- NOTE | 2025-01-16 19:51 | NUR ---
PATIENT'S IV WRAPPED. PATIENT TOOK SHOWER INDEPENDENTLY. BED LINEN CHANGED.
--- NOTE | 2025-01-16 20:10 | NUR ---
PT ASSESSED AND MEDICATIONS GIVEN. PT TOOK SHOWER, GOWN AND BED LINEN CHANGED. VSS. PT DENIED ANY PAIN OR DISCOMFORT. PT TOLERATING PO INTAKE. PT UP INDEPENDENTLY TO BATHROOM, GOOD OUTPUT NOTED. IVF INFUSING PER ORDER. SAFETY PRECAUTIONS MAINTAINED. CALL LIGHT WITHIN REACH. WILL CONTINUE TO MONITOR.
[2025-01-17] VITALS (7 sets, daily range): BP systolic 147–154; BP diastolic 79–84
--- NOTE | 2025-01-17 06:00 | NUR ---
PT RESTED WELL DURING THE SHIFT. VSS. IVF INFUSING PER ORDER. PT DENIED ANY PAIN OR DISCOMFORT. PT TOLERATING PO INTAKE. PT UP INDEPENDENTLY TO BATHRROM, GOOD OUTPUT NOTED. SAFETY PRECAUTIONS MAINTAINED. CALL LIGHT WITHIN REACH. WILL CONTINUE TO MONITOR.
--- NOTE | 2025-01-17 07:27 | NUR ---
REPORT RECEIVED FROM DORY MADERA. PT AWAKE AND UP IN THE BATHROOM INDEPENDENT.
--- NOTE | 2025-01-17 07:58 | NUR ---
NEW BAG OF IVF YAA.
--- NOTE | 2025-01-17 08:34 | NUR ---
PT UP IN CHAIR EATING BREAKFAST. STATES HE FEELS GOOD AND HAS HAD SEVERAL LOOSE STOOLS THIS MORNING. IN ROOM.
--- NOTE | 2025-01-17 09:25 | NUR ---
ALERT AND ORIENTED IN RECLINER. IN ROOM. PLAN TO DC TO HOME, POTENTIALLY TODAY. STATES HE HAS NO CM NEEDS. CONCERNED ABOUT ANTIBIOTIC PRIOR TO ADMISSION. STARTED ANTIBIOTIC FOR UTI AND HAD ONLY TAKEN IT FOR 1 DAY PRIOR TO ARRIVAL. INSTRUCTED TO DISCUSS CONTINUATION OF MEDICATION WITH DR. TINAJERO AND PHARMACY. VERBALIZES UNDERSTANDING.
[2025-01-17] MEDS ORDERED: DIATRIZOATE MEGLU/DIATRIZO SOD 15 ML BTL PO ONE ×2 (11:00→12:00)
--- NOTE | 2025-01-17 13:56 | NUR ---
PT BACK TO FLOOR FROM CT. INDEPENDANT IN ROOM.
--- NOTE | 2025-01-17 15:33 | NUR ---
PATIENT TOOK A SHOWER LAST NIGHT AROUND 2100 BED LINENS WERE ALSO CHANGED. I ASKED PATIENT THIS MORNING IF HE WOULD LIKE TO TAKE A SHOWER AND CHANGE HIS BED LINENS AND HE SAID NO. HE MIGHT GO HOME. BUT IF HE DOES CHANGE HIS MIND I PUT CLEAN TOWELS AND GOT HIM A NEW SHAMPOO.
--- NOTE | 2025-01-17 16:13 | NUR ---
ASSESSMENT COMPLETE. PT SITTING UP IN CHAIR AFTER WALKING IN ROJAS THIS AFTERNOON. DENIES PAIN. HAS "POOPED EVERYTHING OUT" AND STATES HE HAS NOTHING LEFT.
--- NOTE | 2025-01-17 18:26 | NUR ---
PATIENT IS SITTING IN CHAIR WATCHING TELEVISION. INTERMITTENTLY WALKING AROUND THE ROOM TO STRETCH HIS LEGS. PATIENT DENIES ANY NEEDS OR CONCERNS AT THIS TIME.
--- NOTE | 2025-01-17 19:16 | NUR ---
REPORT RECEIVED FROM DAY SHIFT RN. PT SITTING IN RECLINER ALERT AND ORIENTED. VISITOR IN ROOM. DENIES NEEDS. WHITE BOARD UPDATED. CALL LIGHT IN REACH.
--- NOTE | 2025-01-17 19:26 | NUR ---
REPORT RECEIVED FROM DAY SHIFT RN. PT SITTING IN CHAIR IN ROOM. PT DENIED ANY PAIN OR DISCOMFORT. SAFETY PRECAUTIONS MAINTTAINED. CALL LIGHT WITHIN REACH. WILL CONTINUE TO MONITOR.
--- NOTE | 2025-01-17 20:18 | NUR ---
PT ASSESSED AND MEDICATIONS GIVEN. VSS. PT UP INDEPENDENTLY IN ROOM. PT DENIED ANY PAIN. PT'S FAMILY IS IN ROOM WITH PT. SAFETY PRECAUTIONS MAINTAINED. CALL LIGHT WITHIN REACH. WILL CONTINUE TO MONITOR.
[2025-01-17] MEDS ORDERED: FAMOTIDINE 20 MG/ 2 ML VIAL IV SCH (21:00)
[2025-01-18] VITALS (14 sets, daily range): BP systolic 132–163; BP diastolic 62–82
[2025-01-18 06:04] LABS: BASOPHILS 0.7 % (0.2-1.2); EOSINOPHILS 2.7 % (0.8-7.0); HEMATOCRIT 37.9 % (40.1-51.0); HEMOGLOBIN 12.5 g/dL (13.7-17.5); LYMPHOCYTES 9.7 % (21.8-53.1); MCH 33.1 PG (25.7-32.2); MCV 100.3 fL (79.0-92.2); MONOCYTES 7.8 % (5.3-12.2); NEUTROPHILS 78.8 % (34.0-67.9); PLATELET COUNT 204 K/uL (163-337); RBC 3.78 M/uL (4.63-6.08)
--- NOTE | 2025-01-18 06:10 | NUR ---
PT RESTED WELL THROUGHOUT THE SHIFT. PT NPO SINCE MIDNIGHT IN PREPARATION FOR SURGERY TODAY. VSS. PT UP INDEPENDENTLY. VOIDING WELL, BM'S NOTED. SAFETY PRECAUTIONS MAINTAINED. CALL LIGHT WITHIN REACH. WILL CONTINUE TO MONITOR.
[2025-01-18 06:23] LABS: ALBUMIN 2.8 g/dL (3.4-5.0); ALBUMIN/GLOBULIN RATIO 0.93 (1.1-2.4); ANION GAP 9.7 (7-21); BILIRUBIN, TOTAL 0.7 mg/dL (0.2-1.0); BUN/CREATININE RATIO 5.37 (6.0-28.6); CALCIUM 8.8 mg/dL (8.5-10.1); CREATININE, SERUM 0.93 mg/dL (0.70-1.30); POTASSIUM 3.7 mmol/L (3.5-5.1); PROTEIN, TOTAL 5.8 g/dL (6.4-8.2)
[2025-01-18] MEDS ORDERED: CEFAZOLIN SODIUM 2 GM/20 ML SYR IV SCH (07:00)
--- NOTE | 2025-01-18 07:34 | NUR ---
MORNING REPORT RECIEVED FROM DORY SUÁREZ. PT SITTING UP IN CHAIR AT THIS TIME AWAKE AND ALERT. PT IS ALSO IN ROOM WITH PT. PT HAS NO CURRENT CONCERNS AT THIS TIME AND IS AGREEABLE TO SURGERY TODAY. PT PRE SURGICAL WIPE DOWN WILL BE COMPLETED ONCE SURGERY TIME IS KNOWN. PT HAS CALL LIGHT IN REACH.
--- NOTE | 2025-01-18 08:20 | NUR ---
PT MORNING MEDICATIONS ADMIN, PT STANDING IN ROOM TALKING WITH SPOUSE, PT DENIES PAIN AT THIS TIME, PT HAS NO CURRENT CONCERNS AND HAS CALL LIGHT IN REACH.
--- NOTE | 2025-01-18 08:43 | NUR ---
ALERT AND ORIENTED IN RECLINER. IV FLUIDS INFUSING. VERBALIZES SURGICAL PROCEDURE TODAY. WOULD LIKE TO GO HOME TONIGHT AFTER SURGERY, DISCUSSED THAT IS NOT LIKELY BUT WILL BE UP TO DR. TINAJERO. DENIES CM NEEDS AT THIS TIME.
--- NOTE | 2025-01-18 09:40 | NUR ---
PT SITTING ON COUCH AT THIS TIME, PT IS INDEPENDANT IN THE ROOM AND HAS NO CONCERNS, PT IS WAITING FOR THEIR SURGERY THAT IS SUPPOSED TO BE DONE TODAY. PT HAS CALL LIGHT IN REACH.
--- NOTE | 2025-01-18 11:15 | NUR ---
PT IS SITTING UP IN CHAIR, PT DENIES PAIN OR ANY CURRENT NEEDS AT THIS TIME, PT HAS CALL LIGHT IN REACH.
--- NOTE | 2025-01-18 12:09 | NUR ---
PT IS SITTING UP IN CHAIR WITH SPOUSE PRESENT IN ROOM, PT HAS NO CURRENT NEEDS AT THIS TIME CALL LIGHT IN REACH.
--- NOTE | 2025-01-18 13:15 | NUR ---
PT SITTING UP IN CHAIR, PT WAS TOLD ABOUT WHAT TIME TO BE EXPECTING SURGERY, AND PT WAS AGREEABLE. PT HAS NO CONCERNS AND HAS CALL LIGHT IN REACH.
--- NOTE | 2025-01-18 14:30 | NUR ---
PATIENT DID HIS SURGICAL WIPE DOWN. NEW GOWN NEW SOCKS HAVEN'T PUT THEM ON YET. BED LINENS CHANGED. SCDS ARE ON PATIENT'S BED READY TO GO ON WHEN IT IS TIME. PATIENT IS WALKING AROUND IN HIS ROOM. PATIENT INDEPENDENT.
[2025-01-18] MEDS ORDERED: SEVOFLURANE 250 ML BTL INH ONE ×2 (15:16→15:17)
--- NOTE | 2025-01-18 16:07 | NUR ---
PT SITTING UP IN CHAIR WITH FAMILY CURRENTLY IN ROOM. PT HAS NO CURRENT NEEDS AND HAS CALL LIGHT IN REACH.
[2025-01-18] MEDS ORDERED: fentaNYL citrate 100 MCG/2 ML VIAL ONE ×2 (16:38→22:54)
--- NOTE | 2025-01-18 16:45 | NUR ---
PT TRANSPORTED VIA BED TO OR, PT TO RETURN TO SAME ROOM AFTER PROCEDURE, PT SPOUSE IS GOING TO STAY IN ROOM UNTIL AFTER PROCEDURE, AND REQUESTED UPDATES ON PT WHEN STAFF IS AVAILIBLE TO.
[2025-01-18] MEDS ORDERED: KETOROLAC TROMETHAMINE 30 MG/ML VIAL ONE (16:54)
[2025-01-18] MEDS ORDERED: DEXAMETHASONE SOD PHOS 4 MG/ML VIAL ONE (16:54)
[2025-01-18] MEDS ORDERED: ondansetron HCL 4 MG/2 ML VIAL ONE ×2 (16:54→22:54)
[2025-01-18] MEDS ORDERED: propofoL 200 MG/20 ML VIAL ONE ×2 (16:54→22:54)
[2025-01-18] MEDS ORDERED: ACETAMINOPHEN 1,000 MG/100 ML VIAL ONE (16:55)
[2025-01-18] MEDS ORDERED: LIDOCAINE HCL 2% 5 ML SDV ONE ×2 (16:55→22:54)
[2025-01-18] MEDS ORDERED: ePHEDrine sulfate 50 MG/ML AMP ONE ×2 (17:26→23:00)
[2025-01-18] MEDS ORDERED: SUGAMMADEX SODIUM 200 MG/2 ML ML ONE (18:32)
[2025-01-18] MEDS ORDERED: ROCURONIUM BROMIDE 50 MG/5 ML SYR ONE ×2 (18:32→22:54)
[2025-01-18] MEDS ORDERED: CEFAZOLIN SODIUM 2 GM/20 ML SYR IV ONE ×2 (18:45→23:00)
[2025-01-18] MEDS ORDERED: fentaNYL citrate 100 MCG/2 ML VIAL IV PRN (18:55)
--- NOTE | 2025-01-18 19:23 | NUR ---
REPORT RECEIVED FROM GEORGE CONNORS. pt STILL IN PACU AT THIS TIME ACCORDING TO DAY SHIFT RN. NO NEEDS AT THIS TIME. CALL LIGHT WITHIN REACH.
--- NOTE | 2025-01-18 19:29 | NUR ---
01/18/[id number] Olson,Harper Paul 1849: PATIENT ARRIVED TO PACU UNRESPONSIVE WITH ORAL AIRWAY IN PLACE. BREATHING SPONTANEUOSLY. 1857: SHIRIN DRESSING SATURATED. SHIRIN DRESSING REMOVED. SHIRIN INSERTION SITE DRAINING MODERATE AMOUNT OF BLOOD TINGED IRRIGATION FLUID. ABD PAD TO SHIRIN SITE. SHIRIN DRAINED FOR 30 ML. 1909: PATIENT AWAKENED TO NAME. ORAL AIRWAY OUT. THEN PATIENT FELL BACK TO SLEEP. 1913: O2 MASK OFF. PATIENT DENIES PAIN. SHIRIN SITE CONTINUES TO DRAIN MODERATE AMOUND OF IRRIGATION FLUID. 1924: SHIRIN DRAINED AGAIN FOR ANOTHER 30 ML.
[2025-01-18] MEDS ORDERED: fentaNYL citrate 50 MCG/ML SDV ONE (19:39)
--- NOTE | 2025-01-18 20:05 | NUR ---
pt ARRIVED TO THE VIA STRETCHER. pt A&OX4. SHIRIN DRESSING HAS MINIMAL DRAINAGE AROUND THE SITE. LAP SITES INTACT WITH MINIMAL DRAINAGE. pt DENIES PAIN AT THIS TIME. VSS. pt ARRIVED TO THE FLOOR ON 2LNC DUE TO PAIN MEDS PREVIOUSLEY ADMINISTERED. SCD'S ON. CPOX. IV ASSESSED, WNL. IVF INFUSING PER ORDER. pt DENIES ANY OTHER NEEDS AT THIS TIME. CALL LIGHT WITHIN REACH.
--- NOTE | 2025-01-18 20:33 | NUR ---
IV PUMP ALARMING DISTAL OCCLUSION, RESTARTED, IVF INFUSING WNL. pt PROVIDED WITH ICE WATER. DENIES ADDITIONAL REQUESTS. CALL LIGHT IN REACH.
--- NOTE | 2025-01-18 21:10 | NUR ---
PATIENT RIGHT AC IV INFILTRATED. RIGHT AC IV DCd WNL WITH TIP INTACT. NEW IV PLACED IN RIGHT FOREARM. PATIENT WINSTON WELL. VS OBTAINED AND RECORDED. PATIENT DENIES FURTHER NEEDS. CALL LIGHT IN REACH.
--- NOTE | 2025-01-18 21:30 | NUR ---
pt C/O 01/11 PAIN. PRN PAIN MEDS ADMINISTERED. pt DENIES ANY OTHER NEEDS AT THIS TIME. CALL LIGHT WITHIN REACH.
--- NOTE | 2025-01-18 21:40 | NUR ---
CHECKED pt'S DEWITT AFTER pt C/O HAVING THE URGE TO PEE. AFTER MOVING THE DEWITT A LITTLE pt STATES IT FELT A LITTLE BETTER AND THE PRESSURE IS GONE. THE pt WAS ALSO WONDERING ABOUT THE SHIRIN DRAIN THIS RN CHECKED IT AND NOTICED THAT IT WAS FULL AND EMPTIED IT FOR 100mL. pt DENIES ANY OTHER NEEDS AT THIS TIME. CALL LIGHT WITHIN REACH.
--- NOTE | 2025-01-18 22:05 | NUR ---
IN RM TO START ADMINISTER pt 2200 IV ABX AND DO POST-OP VS. THIS RN NOTICED THAT THE SHIRIN DRAIN WAS FULL AGAIN AND EMPTIED IT FOR 110mL. VSS. pt DENIES ANY OTHER NEEDS AT THIS TIME. CALL LIGHT WITHIN REACH.
--- NOTE | 2025-01-18 22:10 | NUR ---
IN RM TO CHECK ON pt AND NOTICED HIS SHIRIN DRAIN WAS FULL AGAIN. SHIRIN WAS EMPTOED FOR ANOTHER 110mL. THIS RN CAME OUT TO THE [facility] KAY MACHINE OPERATOR TO INFORM THEM OF THE FINDINGS. THE FLUID IS ADIA RED. VITAL SIGNS REMAIN STABLE.
--- NOTE | 2025-01-18 22:20 | NUR ---
DR. TINAJERO CALLED AND INFORMED OF SHIRIN DRAIN OUT PUT AND pt STATUS. NEW ORDERS GIVEN AND VERIFIED WITH REPEAT BACK METHOD FOR STAT CBC. STATES HE WILL BE IN.
[2025-01-18 22:32] LABS: BASOPHILS 0.3 % (0.2-1.2); EOSINOPHILS 0.1 % (0.8-7.0); HEMATOCRIT 35.1 % (40.1-51.0); HEMOGLOBIN 11.9 g/dL (13.7-17.5); LYMPHOCYTES 3.9 % (21.8-53.1); MCH 33.5 PG (25.7-32.2); MCHC 33.9 g/dL (32.3-36.5); MCV 98.9 fL (79.0-92.2); MONOCYTES 1.8 % (5.3-12.2); NEUTROPHILS 93.4 % (34.0-67.9); PLATELET COUNT 207 K/uL (163-337); RBC 3.55 M/uL (4.63-6.08)
--- NOTE | 2025-01-18 22:40 | NUR ---
VSS. SHIRIN DRAIN FULL AGAIN AND EMPTIED FOR 105mL. DEWITT EMPTIED FOR 1000mL. IVF INFUSING PER ORDER. pt DENIES ANY OTHER NEEDS AT THIS TIME. CALL LIGHT WITHIN REACH. DRESSING AROUND SHIRIN IS SATURATED WITH RED FLUID AT THIS TIME. DR. TINAJERO HAS ARRIVED TO THE FLOOR AND IS IN THE ROOM TO ASSESS THE pt.
[2025-01-18] MEDS ORDERED: SUCCINYLCHOLINE IN 0.9% NACL 200 MG/10 ML SYRINGE ONE (22:54)
--- NOTE | 2025-01-18 23:05 | NUR ---
VITAL SIGNS DONE. SHIRIN DRAIN FULL AGAIN. SHIRIN EMPTIED FOR 90mL AND RED IN COLOR. LR WITH STRAIGHT TUBING HANGING. pt DENIES ANY OTHER NEEDS AT THIS TIME. CALL LIGHT WITHIN REACH. CPOX ON. SCD'S ON.
[2025-01-18 23:26] LABS: ABO A; RH POSITIVE
--- NOTE | 2025-01-18 23:30 | NUR ---
SURGERY HAS ARRIVED TO TAKE THE pt TO DAY SURGERY. FAMILY IS IN THE RM. NO OTHER NEEDS AT THIS TIME.
[2025-01-18 23:49] LABS: ABO A; ANTIBODY SCREEN NEGATIVE; IS CROSSMATCH COMPATIBLE; RH POSITIVE
[2025-01-19] VITALS (16 sets, daily range): BP systolic 113–139; BP diastolic 56–83
[2025-01-19] MEDS ORDERED: fentaNYL citrate 100 MCG/2 ML VIAL ONE (00:25)
[2025-01-19] MEDS ORDERED: Ropivacaine HCl 0.5% 30 ML VIAL ONE (00:50)
[2025-01-19] MEDS ORDERED: SODIUM CHLORIDE 0.9% 60 ML IV ONE (00:50)
[2025-01-19] MEDS ORDERED: OXYCODONE/APAP 7.5/325 TAB PO PRN (01:45)
[2025-01-19] MEDS ORDERED: ACETAMINOPHEN 1,000 MG/100 ML VIAL IV PRN (01:45)
--- NOTE | 2025-01-19 02:22 | NUR ---
pt ARRIVED TO THE FLOOR FROM PACU. VSS. pt ON RA. SHIRIN IN RLQ HAS SS DRAINAGE. MIDLINE DRESSING CDI. DEWITT EMPTY. REPORT RECEIVED FROM VIDEO PLAYER MECHANIC. pt DENIES ANY OTHER NEEDS AT THIS TIME. CALL LIGHT WITHIN REACH.
--- NOTE | 2025-01-19 03:22 | NUR ---
IN RM TO ASSESS pt FOR POST-OP. pt DENIES ANY NEEDS FOR PAIN MEDS AT THIS TIME. pt DENIES ANY OTHER NEEDS AT THIS TIME. CALL LIGHT WITHIN REACH. SHIRIN EMPTIED FOR 110mL AT 0250.
--- NOTE | 2025-01-19 04:05 | NUR ---
IN RM TO DO pt VITAL SIGNS. pt DENIES ANY NEEDS AND PAIN AT THIS TIME. pt SHIRIN HALF FULL AT THIS TIME. CALL LIGTH WITHIN REACH.
[2025-01-19 05:21] LABS: BASOPHILS 0.1 % (0.2-1.2); EOSINOPHILS 0 % (0.8-7.0); HEMATOCRIT 32.2 % (40.1-51.0); HEMOGLOBIN 10.8 g/dL (13.7-17.5); LYMPHOCYTES 4.2 % (21.8-53.1); MCH 33.3 PG (25.7-32.2); MCHC 33.5 g/dL (32.3-36.5); MCV 99.4 fL (79.0-92.2); MONOCYTES 6.6 % (5.3-12.2); NEUTROPHILS 88.4 % (34.0-67.9); PLATELET COUNT 197 K/uL (163-337); RBC 3.24 M/uL (4.63-6.08)
[2025-01-19 05:31] LABS: BUN/CREATININE RATIO 9.89 (6.0-28.6); CALCIUM 7.9 mg/dL (8.5-10.1); CREATININE, SERUM 0.91 mg/dL (0.70-1.30)
--- NOTE | 2025-01-19 07:02 | NUR ---
REPORT RECEIVED FROM CLIENT ADMINISTRATOR RN ALYSIA. PATIENT IS LYING IN BED WITH EYES OPEN AND RESPIRATIONS ARE EVEN AND UNLABORED. CPOX AT BEDSIDE. CALL LIGHT AND PERSONAL BELONGINGS ARE WITHIN REACH.
--- NOTE | 2025-01-19 08:02 | NUR ---
0900 MEDICATIONS ADMINISTERED PER THE EMAR. PATIENT IS LYING IN BED WITH HOB ELEVATED. PATIENT WITH EYES OPEN AND RESPIRATIONS ARE EVEN AND UNLABORED. PATIENT RATED PAIN 5/10 IN THE RLQ WHERE THE SHIRIN DRAIN IS. PATIENT IS NOT REQUESTING ANYTHING FOR PAIN AND HE HAS NO COMPLAINTS OF NAUSEA. IV SITE FLUSHED WITH 10 ML NORMAL SALINE. LR IS INFUSING AT 85 ML/HR. IV DRESSING IS CLEAN, DRY, AND INTACT. NEW IV TUBING IN PLACE. PATIENT STATED NO FURTHER NEEDS AT THIS TIME. CALL LIGHT AND PERSONAL BELONGINGS ARE WITHIN REACH. CPOX AT BEDSIDE.
--- NOTE | 2025-01-19 09:20 | NUR ---
PATIENT IS LYING IN BED WITH HOB ELEVATED. PATIENT WITH EYES OPEN AND RESPIRATIONS ARE EVEN AND UNLABORED. PATIENT WITH NO COMPLAINTS OF NAUSEA. BLINDS OPEN. ARC AIR OPERATOR IS THE ROOM AND HIS IS SITTING ON THE COUCH. PATIENT WAS GIVEN A REGULAR BREAKFAST TRAY AND ATE THE CHEERIOS WITH MILK. PATIENT EDUCATED ON A CLEAR LIQUID DIET. PASTORA CHARGE NURSE CALLED DOWN TO THE KITCHEN AND VERIFIED ORDER. BREAKFAST TRAY REMOVED AT THIS TIME. PATIENT STATED NO FURTHER NEEDS AT THIS TIME. CALL LIGHT AND PERSONAL BELONGINGS ARE WITHIN REACH.
--- NOTE | 2025-01-19 09:27 | NUR ---
VISITED DURING SPIRITUAL CARE ROUNDS. PT SUPPORTED BY IN ROOM. BOTH IN OVERALL GOOD SPIRITS, NO IMMEDIATE NEEDS. EMT B PROVIDED SUPPORTIVE PRESENCE, HOSPITALITY, PRAYER, FACILITATED INTERACTION WITH THERAPY ANIMAL. PT AND EXPRESSED GRATITUDE, HOPE.
--- NOTE | 2025-01-19 09:32 | NUR ---
LEFT THE ROOM AT THIS TIME. DAVE SOLARES IS IN THE ROOM AT THIS TIME. PATIENT IS SITTING ON THE COUCH. FULL ASSESSMENT COMPLETE AND DOCUMENTED IN THE CHART. PATIENT IS ALERT AND ORIENTED TIMES FOUR. PATIENT LAST BM WAS 01/18/25. SHIRIN DRAIN IN THE RLQ WITH SEROSANGUINEOUS DRAINAGE NOTED IN THE BULB. SHIRIN DRAIN DRESSING IS CLEAN, DRY, AND INTACT. ONE LAP SITE NOTED WITH SERI STRIPS. TWO DRESSINGS NOTED ON THE MIDLINE ABDOMEN WITH ACTICOAT IN PLACE. SHADOWING NOTED TO THE BOTTOM OF THE MIDLINE ACTICOAT DRESSING. PATIENT RATED PAIN 3/10 IN THE RIGHT SIDE OF THE ABDOMEN BUT IS NOT REQUESTING ANYTHING FOR PAIN AT THIS TIME. PATIENT IS ON A CLEAR LIQUID DIET AND BOWEL TONES ARE ACTIVE IN ALL FOUR QUADRANTS. RLQ IS TENDER TO PALPATION. ABDOMEN IS MILDLY DISTENDED. PATIENT IS ON ROOM AIR WITH THE CPOX AT BEDSIDE. LUNG SOUDNS ARE CLEAR THROUGHOUT. IV SITE FLUSHED WITH 10 ML NORMAL SALINE. IV DRESSING IS CLEAN, DRY, AND INTACT. LR IS INFUSING AT 85 ML/HR. CARDIAC WITH NORMAL S1 AND S2 ON AUSCULTATION. RADIAL AND PEDAL PULSES ARE STRONG BILATERALLY. SENSATION INTACT WITH NO COMPLAINTS OF NUMBNESS OR TINGLING. PATIENT REPORTS HIS HANDS FEEL TIGHT. PATIENT STATED NO FURTHER NEEDS AT THIS TIME. CALL LIGHT AND PERSONAL BELONGINGS ARE WITHIN REACH.
--- NOTE | 2025-01-19 09:40 | NUR ---
ALERT AND ORIENTED IN BED. IN ROOM. PATIENT STATES HE IS FEELING OK THIS AM. STATES HE WOULD LIKE TO GO HOME BY AT LEAST THE END OF THE WEEK. DR. TINAJERO ENTERS ROOM DURING CONVERSATION AND SPEAKS WITH PATIENT AND SPOUSE. INFORMS HIM DC COULD BE POTENTIALLY THIS AFTERNOON OR TOMORROW DEPENDING ON HOW PATIENT IS DOING. PATIENT STATES THAT WOULD BE WONDERFUL. NO KNOWN CM NEEDS AT THIS TIME.
--- NOTE | 2025-01-19 10:55 | NUR ---
DEWITT CATHETER REMOVED PER MD ORDER. PATIENT TOLERATED WELL. PATIENT IS LYING IN BED WITH HOB ELEVATED. PATIENT WITH EYES OPEN AND RESPIRATIONS ARE EVEN AND UNLABORED. PATIENT IS REQUESITNG PAIN MEDICATION SO HE CAN GO FOR A WALK. PATIENT STATED NO FURTHER NEEDS AT THIS TIME. CALL LIGHT AND PERSONAL BELONGINGS ARE WITHIN REACH.
--- NOTE | 2025-01-19 11:13 | NUR ---
IV OFFIRMEV STARTED AT THIS TIME FOR PAIN RATED 3/10 IN THE RIGHT SIDE OF ABDOMEN. FRESH CUP OF ICE WATER PROVIDED. IV PUMP CLEARED OF INTAKE FLUID AND DOCUMENTED IN THE CHART. PATIENT STATED NO FURTHER NEEDS AT THIS TIME. CALL LIGHT AND PERSONAL BELONGINGS ARE WITHIN REACH.
--- NOTE | 2025-01-19 12:17 | NUR ---
THIS RN TO ROOM PATIENT IS COMPLAINING THAT HIS SHIRIN DRAIN HAS RAPIDLY FILLED SINCE GOING FOR A WALK. 95ML OF BLOODY LIQUID. PRESSURE REAPPLIED TO SHIRIN DRAIN AND DRAIN IMMEDIATELY FILLS 1/3 FULL OF SIMILAR BLOODY LIQUID. PATIENT IS SITTING ON THE EDGE OF HIS BED AND REPORTS HE IS FEELING DIZZY AND THOUGH HE MAY PASS OUT. PATIENT LAYS DOWN IN BED. VS OBTAINED AND WNL. PATIENT REPORTS HE NO LONGER FEELS LIKE PASSING OUT WHEN LAYING DOWN. PATIENT DENIES ANY TEARING, POPPING, OR RIPPING SENSATION WHEN HE WAS WALKING OR STANDING, BUT STATES THAT HE IS HAVING SO MUCH PAIN HE CAN'T BE SURE. THIS RN REMAINS IN THE ROOM AT THIS TIME.
--- NOTE | 2025-01-19 12:26 | NUR ---
SHIRIN BULB EMPTIED AGAIN OF 35ML BLOODY DRAINAGE. TUBING HAS STEADY DRIP INTO SHIRIN BULB. PATIENT REMAINS LAYING DOWN IN BED. VS RE-OBTAINED, REMAIN STABLE. PASTORA, MICA WASHER GLUER IN TO SEE PATIENT. PATIENT REMAINS RESTING IN BED AT THIS TIME. CALL LIGHT AND PERSONAL BELONGINGS IN REACH.
--- NOTE | 2025-01-19 12:49 | NUR ---
PT RESTING IN BED WITH NO REQUESTS AT THIS TIME. PT DENIES PAIN OR DIZZINESS. CALL LIGHT WITHIN REACH.
--- NOTE | 2025-01-19 14:05 | NUR ---
THIS RN INTO PATIENT ROOM TO ASSESS BEDSIDE PULSE OXIMETRY ALARM. PATIENT REPORTS HE HAS JUST SAT UP, PULSE OXIMETRY FINGER PROB CHANGED OUT, PATIENT 96% OXYGEN SATURATION ON ROOM AIR. HE REPORTS HE HAS PAIN, "IT WAS REALLY BAD WHEN I SAT UP." THIS RN ASKED, "DO YOU FEEL LIKE YOU NEED PAIN MEDICATION NOW?" HE SAID, "YEAH, IF ITS TIME, I SHOULD HAVE SOMETHING." THIS RN GAVE EDUCATION ON PAIN MEDICATIONS NEEDED ORDERS, THAT PAIN MEDICATIONS IS NOT SCHEDULED, THAT WHEN YOUR PAIN IS INCREASEING TO NOTIFY STAFF, AND YOUR PRIMARY RN WILL ALSO ASSESS YOUR PAIN LEVELS. PATIENT ADMINISTERED 1 TAB PERCOCET PRN FOR PAIN 7/10 RLQ. GAVE FURTHER EDUCATIONS ON PERCOCET SIDE EFFECTS AND PRECAUTIONS. FRESH ICE WATER PROVIDED, LAUREN CONNORS PRIMARY NURSE INTO ROOM TO ADMINISTER ABX.
--- NOTE | 2025-01-19 15:00 | NUR ---
I ASKED PATIENT IF HE WOULD LIKE TO DO A BED BATH AND HE SAID IT DEPENDS HOW HE FEELS TODAY.
--- NOTE | 2025-01-19 15:27 | NUR ---
PT STANDING AT SIDE OF BED, TOLERATING WELL. FAMILY IN ROOM. PT STATES PAIN IS TOLERABLE AT THIS TIME. NO NEEDS IDENTIFIED. CALL LIGHT WITHIN REACH.
--- NOTE | 2025-01-19 16:35 | NUR ---
PATIENT IS LYING IN BED WITH HOB ELEVATED. PATIENT REPORTS PAIN IS A 6/10 WHEN ASKED BY THIS RN. RN OFFERED PAIN MEDICATION AND PATIENT REPORTS WANTING TO WAIT LONGER DUE TO JUST WAKING UP AFTER RECEIVING THE LAST PERCOCET DOSE. IV SITE FLUSHED WITH 10 ML NORMAL SALINE AND IS SALINE LOCKED. IV DRESSING IS CLEAN, DRY, AND INTACT. BOWEL TONES ARE ACTIVE IN ALL FOUR QUADRANTS. ABDOMEN IS MILDLY DISTENDED. SHIRIN DRAIN EMPTIED OF 70 ML SANGUINEOUS DRAINAGE. SHADOWING NOTED ON THE SHIRIN DRAIN DRESSING AND ON THE BOTTM OF THE MIDLINE ABDOMINAL ACTICOAT. PATIENT STATED NO FURTHER NEEDS AT THIS TIME. CALL LIGHT AND PERSONAL BELONGINGS ARE WITHIN REACH.
--- NOTE | 2025-01-19 17:10 | NUR ---
PATIENT IS SITTING ON THE EDGE OF BED AND EATING DINNER. PATIENT STATED NO NEEDS AT THIS TIME. CALL LIGHT AND PERSONAL BELONGINGS ARE WITHIN REACH.
--- NOTE | 2025-01-19 17:15 | NUR ---
PATIENT IS SITTING UP ON THE SIDE OF HIS BED EATING HIS DINNER HE ALSO DID THAT FOR LUNCH. I ASKED PATIENT IS THERE ANYTHING HE NEEDS AND HE SAID NO.
--- NOTE | 2025-01-19 17:57 | NUR ---
NOTIFIED OF PATIENT HAVING 50 ML URINE OUT SINCE REMOVING THE DEWITT CATHETER AROUND 1100. NOTIFIED OF BLADDER SCAN SHOWING 0 ML IN THE BLADDER. MD GAVE TELEPHONE ORDER TO DO 1 L LR BOLUS NOW. NOTIFIED OF SHIRIN DRAINAGE WELL. NO FURTHER ORDERS AT THIS TIME. CALL ENDED.
[2025-01-19] MEDS ORDERED: LACTATED RINGER'S 1,000 ML IV ONE (18:15)
--- NOTE | 2025-01-19 19:05 | NUR ---
REPORT RECEIVED FROM SANAM CONNORS. pt SITTING ON THE EDGE OF THE BED. pt WALKED A LAP AROUND MED SURG. pt DENIES ANY OTHER NEEDS AT THIS TIME. CALL LIGHT WITHIN REACH.
--- NOTE | 2025-01-19 19:45 | NUR ---
PT C/O 03/13 PAIN. PRN PAIN MEDS ADMINISTERED. pt DENIES ANY OTHER NEEDS AT THIS TIME. CALL LIGHT WITHIN REACH.
--- NOTE | 2025-01-19 20:35 | NUR ---
ASSESSMENT AND VITAL SIGNS DONE. pt RESTING IN THE BED. SCHEDULED MEDS ADMISTERED. SHIRIN DRESSING REINFORCED DUE TO EDGE OF DRESSING COMING OFF FROM LEAKAGE AT THE SITE. SHADOWING AT THE BOTTOM OF THE MIDLINE. BOWEL TONES ACTIVE. IV ASSESSED, WNL. pt DENIES ANY OTHER NEEDS AT THIS TIME. CALL LIGHT WITHIN REACH.
--- NOTE | 2025-01-19 21:05 | NUR ---
IN RM TO ADMINISTER pt SCHEDULED MEDS. pt RESTING IN THE BED. pt DENIES ANY NEEDS AT THIS TIME. CALL LIGHT WITHIN REACH. pt REFUSED SCD'S. CPOX ON.
--- NOTE | 2025-01-19 23:16 | NUR ---
pt RESTING IN THE BED WITH EYES CLOSED. RR EVEN AND UNLABORED. CALL LIGHT WITHIN REACH.
[2025-01-20] VITALS (7 sets, daily range): BP systolic 127–138; BP diastolic 65–69
--- NOTE | 2025-01-20 01:35 | NUR ---
IN RM WITH BELT MAKER TO DO VITAL SIGNS. ASSESSMENT DONE. 50mL OF SS FLUID OUT OF THE SHIRIN DRAIN. pt DENIES ANY OTHER NEEDS AT THIS TIME. CALL LIGHT WITHIN REACH.
--- NOTE | 2025-01-20 02:56 | NUR ---
pt RESTING IN THE BED WITH EYES CLOSED. RR EVEN AND UNLABORED. CALL LIGHT WITHIN REACH.
--- NOTE | 2025-01-20 05:55 | NUR ---
IN RM TO DO VITAL SIGNS WITH CLOSING AGENT. BRIEF CHANGED. PURE WICK CHANGED. ASSESSMENT DONE. WATER REFRESHED. COFFEE AND BROTH PROVIDED. pt DENIES ANY OTHER NEEDS AT THIS TIME. CALL LIGHT WITHIN REACH.
--- NOTE | 2025-01-20 06:06 | NUR ---
IN RM TO DO VITAL SIGNS. SCHEDULED MEDS ADMINISTERED. pt SHIRIN PUT OUT 140mL THROUGH OUT THE NIGHT. pt DENIES ANY OTHER NEEDS AT THIS TIME. CALL LIGHT WITHIN REACH.
--- NOTE | 2025-01-20 07:26 | NUR ---
RECIEVED SHIFT REPORT PT RESTING IN BED, EYES CLOSED, BREATHING EVEN AND UNLABORED. CALL LIGHT IN REACH.
--- NOTE | 2025-01-20 07:43 | NUR ---
PT AMBULATING HALLWAYS, INDEPENDENTLY
--- NOTE | 2025-01-20 08:45 | NUR ---
INTO SEE PATIENT. PATIENT SITTING UP IN BED GETTING LABS DRAWN. PATIENT GOING HOME AT TIME OF DISCHARGE. IM LETTER COMPLETED. NO CM NEEDS.
--- NOTE | 2025-01-20 09:27 | NUR ---
MORNING ASSESSMENT COMPLETE. PT IS AWAKE IN BED, LAB IN ROOM. PT HAS A 2/10 PAIN, BUT WILLING TO WAIT TILL NEXT PRN ORAL PAIN MEDICATION IS DUE. SHIRIN DRAIN EMPTIED 100ML OUT, SANGUANOUS IN COLOR. NO NEEDS AT THIS TIME, CALL LIGHT IN REACH
[2025-01-20 09:35] LABS: BASOPHILS 0.5 % (0.2-1.2); EOSINOPHILS 1.9 % (0.8-7.0); HEMATOCRIT 34.5 % (40.1-51.0); HEMOGLOBIN 11.6 g/dL (13.7-17.5); LYMPHOCYTES 7.7 % (21.8-53.1); MCH 33.5 PG (25.7-32.2); MCHC 33.6 g/dL (32.3-36.5); MCV 99.7 fL (79.0-92.2); MONOCYTES 10.1 % (5.3-12.2); NEUTROPHILS 79.2 % (34.0-67.9); PLATELET COUNT 209 K/uL (163-337); RBC 3.46 M/uL (4.63-6.08)
--- NOTE | 2025-01-20 11:15 | NUR ---
PT SITTING IN RECLINER, DISCUSSED BOWEL MOVEMENT CONCERNS AND DISCUSSED USE OF NARCOTIC PAIN MEDICATIONS. SHIRIN DRAIN EMPTIED, 50ML. PT WALKING HALLS
--- NOTE | 2025-01-20 11:25 | NUR ---
01/20/25 1125 Doris Pang 01/20/25 1124 PACU IN AND OUT TIMES AND ANESTHESIA END TIME UPDATED FROM PAPER CHART.
--- NOTE | 2025-01-20 11:32 | OR ---
[facility] [address] [place], [place] [address] Signed DATE OF OPERATION: 01/18/2025 SURGEON: Wen Tinajero MD PREOPERATIVE DIAGNOSIS: Recent advanced small bowel obstruction with improvement to incomplete small-bowel obstruction, persistent dilated loops of small bowel. POSTOPERATIVE DIAGNOSES: 1. Right lower quadrant pericecal adhesive changes, possible site of recent obstruction. 2. Segmental areas of small bowel inflammation with dilation without ongoing obstructive process. 3. Normal-appearing liver and gallbladder. PROCEDURE: Laparoscopy with laparoscopic lysis of adhesions and placement of drain in pericolic area; complete evaluation of small bowel from ligament of Treitz to terminal ileum. ANESTHESIA: General endotracheal. Jony Tatum CRNA and local 10 mL of 0.25% Marcaine with epinephrine. INDICATION: This 69-year-old white man was admitted to the hospital with abdominal distention and severe pain related to a CT scan finding of bowel obstruction. Quite notably, he has no prior history of abdominal surgery or other abdominal intervention. He has undergone colonoscopy within the past 2 years, which was said to be negative. His initial CT scan showed dilated loops of small bowel throughout the abdomen with what was considered a transition point in the distal bowel. Nasogastric tube decompression improved his symptoms quite a bit. A surgeon small bowel follow-through was performed, which did show passage of contrast into the colon with prompt initiation of bowel movements and so forth. Subsequent abdominal x-ray still showed dilated loops of bowel. Several days of serial abdominal x-rays and clinical examination has continued to show segmental dilated loops of bowel and despite tolerating a clear liquid and soft diet and ultimately a regular diet. The patient has a situation of persistent copious bowel movements without associated blood and although generally feels well. His abdominal x-ray findings still were suggestive of incomplete bowel obstruction. A CT scan was performed yesterday affirming this. On that basis, I have recommended laparoscopy, possible laparotomy to assess what may be the source of his incomplete obstruction, particularly as it relates to possible tumor or other abnormality as he has had no intraabdominal surgical Electronically Signed By: WEN TINAJERO MD 01/20/25 1132 PATIENT NAME: MAGALI ERVIN OPERATIVE REPORT DATE OF : 55 REPORT #: [id number] PHYSICIAN: WEN TINAJERO MD PCP: DAVID MOCTEZUMA MD REPORT IS CONFIDENTIAL AND NOT TO BE RELEASED WITHOUT AUTHORIZATION [facility] [address] [place], [place] [address] Signed intervention in the past. The risk of bleeding, infection, failure of diagnosis, misdiagnosis, need for additional treatment and need of course for open laparotomy were reviewed with the patient, his daughter and his . They will understand and agree to proceed. FINDINGS: A Clemons catheter was placed. He did have some slight resistance on catheter passage according to the circulating nurse. Intra-abdominal inspection showed no sign of ascites or carcinomatosis. There were several segments of small bowel that was slightly dilated and somewhat inflamed. There was no associated creeping fat and certainly no terminal ileitis. The liver and gallbladder appeared normal. In the region of the cecum was an area of redundant thickened peritoneal reflection, which was suggestive of possible site for adhesive or herniating small bowel. Lysis of those adhesions was undertaken freeing the cecum and the terminal ileum more fully. The terminal ileum did have adhesions to the sidewall that were absolutely abnormal compared to usual finding. The small bowel was run first from the terminal ileum proximally and later from the ligament of Treitz distalward. There was one area of bowel identified that had a concentric ring of recent inflammation indicative of area of probable obstructive process, but no associated tumor or other problems. He had no Meckel's diverticulum. There is no evidence of carcinomatosis or mesenteric defect to account for a transmesenteric hernia. The appendix was identified and very small, thin, and filmy and not a pathologic focus. He had no areas of creeping fat or anything to suggest inflammatory bowel disease. The right colon and transverse colon as examined appeared normal. The sigmoid and other areas of the colon were not well visualized. My conclusion, lysis of adhesions in the region of the terminal ileum as well as the pericecal area was undertaken. A drain was left in place along the right pericolic gutter in the region of the adhesiolysis so as to assure no ongoing bleeding. DESCRIPTION OF PROCEDURE: The patient was brought to the operating room, given a general endotracheal anesthetic. A Clemons catheter was placed. Preoperative antibiotic Ancef was given. The abdomen was clipped and prepared with chlorhexidine solution and draped sterilely. An infraumbilical incision was made and using an open Shannan cannula technique, pneumoperitoneum was achieved to a level of 14 mmHg of carbon dioxide gas. Intra-abdominal inspection showed no sign of ascites or carcinomatosis. The liver and gallbladder appeared normal. An epigastric 12 mm port was placed and cannula replaced to that site. Additionally, a right lower quadrant 5 mm port was placed. With 2 hand manipulation, the bowel loops were examined. There were segmental areas of mild dilation of bowel with inflammatory change, but this was not associated with creeping fat or anything of that sort. Electronically Signed By: WEN TINAJERO MD 01/20/25 1132 PATIENT NAME: MAGALI ERVIN OPERATIVE REPORT DATE OF : 55 REPORT #: [id number] PHYSICIAN: WEN TINAJERO MD PCP: DAVID MOCTEZUMA MD REPORT IS CONFIDENTIAL AND NOT TO BE RELEASED WITHOUT AUTHORIZATION [facility] [address] [place], [place] [address] Signed The cecum was identified and subsequently the terminal ileum as manifested by the antimesenteric fat pad of Treves. Upon reflecting the cecum, appeared to be redundant adhesions and a defect like cavern related to those adhesions suggestive, though not entirely certain, as a possible site for which insinuation of bowel may have accounted for bowel obstruction. Additionally, the terminal ileum itself appeared to be fused to the right lateral sidewall in this area. Sharp dissection of adhesions freeing the cecum entirely as well as the ileum entirely were undertaken. Subsequently, and later in the operation, the appendix was identified and found to be flimsy, thin, and normal. The small bowel was run in a retrograde fashion from the terminal ileum more proximally with careful manipulation of the bowel. Inflammatory changes were noticed most dominantly in the ileum. Bowel loops more proximally were relatively normal until the mid to upper bowel where a few areas of inflammatory change were noted as well. Running the bowel in the proximal direction did require a Trendelenburg position as well as left side down. The omentum was elevated cephalad exposing the transverse colon and the mesocolon. Good visualization of the proximal jejunum (ligament of Treitz was not forthcoming at that point) and re-attempt at identification of small bowel more proximally was undertaken. Ultimately, the area of the ligament of Treitz could be identified by elevating the transverse mesocolon. Once the most proximal jejunum was identified, the bowel was examined in a downstream pattern. Approximately care home upon manipulation of those bowel loops was an area of small bowel that had a concentric inflammatory impression on it, almost certainly a site of bowel obstruction recently, but with no associated intramural or intraluminal lesion. There was no creeping fat or signs of inflammatory bowel disease. The small bowel was examined distalward after that showing several bowel loops that were somewhat air-filled, but not frankly obstructed and certainly not ischemic. Examination was taken ultimately to the terminal ileum. The terminal ileum and cecum were once again more fully evaluated. Additional lysis of adhesions at the region of the terminal ileum and the cecum was undertaken. Good visualization of the appendix showed it to be completely normal. Various manipulations and irrigation were undertaken showing no evidence of inflammatory bowel disease or other similar problem. The cecum was soft and without sign of neoplasm. Through the right lower quadrant 5 mm port, a 7 mm flat Peter drain was insinuated behind the cecum and along the right pericolic gutter as there was a fair amount of irrigation fluid and minimal amount of blood. The drain was secured to the skin with nylon suture. It was attached to bulb suction eventually. The rest of the abdomen was examined and found to be reasonable and without sign of bleeding or other problem. Plans were then made for closure. The trocars removed under direct visualization showing no sign of bleeding. The infraumbilical fascial incision was reapproximated with interrupted 0 Vicryl suture. The skin was closed with interrupted 3-0 Vicryl after application of 10 mL of 0.25% Marcaine with epinephrine. The patient was ultimately emerging from anesthesia, had a fair amount of straining on Electronically Signed By: WEN TINAJERO MD 01/20/25 1132 PATIENT NAME: MAGALI ERVIN OPERATIVE REPORT DATE OF : 55 REPORT #: [id number] PHYSICIAN: WEN TINAJERO MD PCP: DAVID MOCTEZUMA MD REPORT IS CONFIDENTIAL AND NOT TO BE RELEASED WITHOUT AUTHORIZATION [address] [address] Signed the abdominal wall, which was then stabilized at the umbilicus and particular with no apparent disruption of the fascia. Ultimately, he was extubated and transferred to the recovery room in good condition having suffered no complications. Sponge, needle, and instrument counts were as correct x3. MD NEEMA Colon/JARRETTL /[id number] cc: Dr. Eitan Gage [facility] David Moctezuma MD Copies: DAVID MOCTEZUMA DMD ~ Electronically Signed By: WEN TINAJERO MD 01/20/25 1132 PATIENT NAME: MAGALI ERVIN OPERATIVE REPORT DATE OF : 55 REPORT #: [id number] PHYSICIAN: WEN TINAJERO MD PCP: DAVID MOCTEZUMA MD REPORT IS CONFIDENTIAL AND NOT TO BE RELEASED WITHOUT AUTHORIZATION
--- NOTE | 2025-01-20 11:32 | OR ---
[facility] [address], [place] [address] Signed DATE OF OPERATION: 01/18/2025 SURGEON: Wen Tinajero MD PREOPERATIVE DIAGNOSES: 1. Postoperative intraabdominal bleeding, status post laparoscopic adhesiolysis in ileocecal area. 2. Recurrent small-bowel obstruction as the indication for the aforementioned operation. POSTOPERATIVE DIAGNOSIS: Retroperitoneal venous bleeding vessel (secured). PROCEDURES: 1. Laparoscopy with lavage of the abdomen, removal of clots, identification of bleeding. 2. Open control of epigastric port site oozing. 3. Laparoscopy with attempted retroperitoneal venous bleeding control requiring conversion to a mini-laparotomy with control of venous bleeding with hemoclips. ANESTHESIA: General endotracheal, Jony Seamons, MGMT CONSULTANT and postoperative bilateral TAP block. HISTORY: This 69-year-old white man is a patient of Dr. David Moctezuma, who was admitted on January 12, 2025, with a high-grade small bowel obstruction. Several days after and decompression and many imaging studies, he was doing reasonably well, but still had abdominal x-ray findings suggestive of incomplete bowel obstruction. A CT scan verified this. On that basis, he was recommended to undergo laparoscopy, possible laparotomy for evaluation of the abdominal contents as to the source of his persistent incomplete bowel obstruction, particularly since he has had no prior history of intraabdominal intervention. Earlier in the day, he underwent laparoscopy with lysis of adhesions in the region of the ileocecal valve, which were densely adherent and likely the source of his bowel obstruction in the past. The remaining bowel appeared to be normal with no evidence of inflammatory bowel disease, Meckel's diverticulum, transmesenteric defect causing hernia and obstruction or other sources of bleeding. He did have a minimal amount of venous blood in the retrocecal area where lysis of adhesions had been undertaken. A drain had been placed. This evening at approximately 10 p.m., he was noted to have persistent venous bleeding and although, hematocrit 35, and vital signs normal. The appearance of the drain compared to immediate postoperative period was such that I did recommend repeat Electronically Signed By: WEN TINAJERO MD 01/20/25 1132 PATIENT NAME: MAGALI ERVIN OPERATIVE REPORT DATE OF : 55 REPORT #: [id number] PHYSICIAN: WEN TINAJERO MD PCP: DAVID MOCTEZUMA MD REPORT IS CONFIDENTIAL AND NOT TO BE RELEASED WITHOUT AUTHORIZATION [address] [address] Signed laparoscopy with evaluation for bleeding site and control bleeding even if it might require laparotomy. The risk of bleeding, infection, failure to diagnose the problem, and other unforeseen complications was reviewed with the patient and his and his daughter, they understand and wished to proceed. FINDINGS: There was clot within the abdominal cavity, some on the pericolic gutter area and others at the epigastric area related, initially thought to the epigastric port site bleeding. Though there was some bleeding at that site, it is unlikely that was a dominant source of bleeding. The bleeding was ultimately related to retroperitoneal venous bleeding of small vessels that had not clotted in the region of the retrocecal area related to adhesiolysis. These could not be controlled endoscopically as exposure was simply not adequate. On that basis, a mini-laparotomy was required to secure the bleeding. At conclusion, there appears to be good control of bleeding in every area. A drain was additionally placed in the right pericolic gutter and retrocecal area. DESCRIPTION OF PROCEDURE: The patient was brought to the operating room, given a general endotracheal anesthetic. Preoperative antibiotic Ancef had been given. Sequential compression device stockings used and a Clemons catheter was already in place. The abdomen was prepared with a chlorhexidine solution after removal of Steri-Strips from the trocar sites and the drain was allowed to remain in situ. The infraumbilical incision was opened and pneumoperitoneum achieved once again with Shannan cannula. Intra-abdominal inspection showed a fair amount of gelatinous blood covering the intraabdominal contents. There was no clear source of bleeding at that time. The epigastric port site was opened and a 12 mm port placed there once again and the drain left in situ. The trocar passed through the epigastric port and was noted to have blood dripping alongside of it. This appeared possibly to be source of bleeding. Indeed, clot was noted to be tenaciously hanging from that site down the round ligament and into the upper abdomen. There was blood pooled alongside the right hepatic lobe too. Irrigation was undertaken with the laparoscopic caisson worker and suction device and reinspection of the epigastric port showed some oozing of blood. The trocar was removed and the incision at the epigastrium incised and further evaluation undertaken. There was no sign of arterial bleeding, but clearly the trocar was part way through the rectus muscle. This area was secured with a running 0 PDS suture. Irrigation was undertaken. Pneumoperitoneum was re-established and examination in that area showed good hemostasis. An additional 5 mm left upper quadrant port was placed to allow for two hand manipulation. The tenacious clot that was over the abdominal contents was easily cleared by this point. There was blood in the perihepatic space and excess irrigation and suctioning was undertaken there. Appeared to be reaccumulation of blood and certainly not from the epigastric port. Therefore, the retrocecal area, which was the Electronically Signed By: WEN TINAJERO MD 01/20/25 1132 PATIENT NAME: MAGALI ERVIN OPERATIVE REPORT DATE OF : 55 REPORT #: [id number] PHYSICIAN: WEN TINAJERO MD PCP: DAVID MOCTEZUMA MD REPORT IS CONFIDENTIAL AND NOT TO BE RELEASED WITHOUT AUTHORIZATION [facility] [address] [place], [place] [address] Signed only area of significant dissection was considered a possible bleeding site. The drain was removed and a 5 mm trocar placed through that site allowing for two hand manipulation. The table was placed in a left down position and bowel loops were carefully and gently manipulated to allow for inspection in the right pericolic gutter. The cecum, which had been mobilized due to adhesions that were extensible causes of obstruction previously were examined. There appeared to be welling up of venous blood in this area, though not copious, but persistent. Irrigation was undertaken and no specific site could be identified. Attempts to more fully examine the retroperitoneum particularly behind the ileum and the cecum were simply not effective. On that basis, conversion to a mini-laparotomy was deemed advisable. The trocars were removed under direct visualization showing no sign of bleeding. The infraumbilical fascial incision was then extended inferiorly and ultimately above the umbilicus to allow for intraabdominal inspection. Manipulation of bowel loops and so forth allowed for delivery of the cecum and the retroperitoneum to be better visualized. There in the retroperitoneum inferiorly was an area of active bleeding of a venous bleeding. Specifically, there was no arterial bleeding. No major vessels were found to be bleeding. These represented the adhesions that had been taken down at the initial operation. Once well identified, they were doubly clipped with large clips and irrigation undertaken more fully. This appeared to stem the bleeding almost completely. Another small area similar to this was similarly secured. Irrigation was undertaken in a copious way, clearing all the abdomen of blood. Additional suctioning with in the pelvis and in the upper abdomen the abdomen fully of blood. As exposure was adequate, the small bowel was run from the terminal ileum more proximally to the ligament of Treitz to affirm there was no missed lesion that had previously accounted for small-bowel obstruction. There was no finding of concern at all. Harry was applied to the retrocecal space where clips had been applied and through the right lower quadrant trocar site, a 7 mm flat Peter drain once again placed. This was secured to the skin with nylon suture. The omentum was placed over the abdominal contents after rearrangement of small bowel loops and the midline fascia reapproximated with running #1 PDS suture. Subcutaneous tissue of the trocar sites and the midline incision were irrigated and the skin closed with interrupted running 3-0 Vicryl suture. Steri-Strips were applied as were Acticoat dressings. The patient was ultimately extubated after application of a TAP block for postoperative analgesic benefit. He tolerated the procedure well. Blood loss was in aggregate including clot was estimated to be 250 mL. Wen Tinajero MD Electronically Signed By: WEN TINAJERO MD 01/20/25 1132 PATIENT NAME: MAGALI ERVIN OPERATIVE REPORT DATE OF : 55 REPORT #: [id number] PHYSICIAN: WEN TINAJERO MD PCP: DAVID MOCTEZUMA MD REPORT IS CONFIDENTIAL AND NOT TO BE RELEASED WITHOUT AUTHORIZATION [address] [address] Signed /MODL /[id number] cc: David Moctezuma MD Copies: DAVID MOCTEZUMA DMD ~ Electronically Signed By: WEN TINAJERO MD 01/20/25 1132 PATIENT NAME: MAGALI ERVIN OPERATIVE REPORT DATE OF : 55 REPORT #: [id number] PHYSICIAN: WEN TINAJERO MD PCP: DAVID MOCTEZUMA MD REPORT IS CONFIDENTIAL AND NOT TO BE RELEASED WITHOUT AUTHORIZATION
--- NOTE | 2025-01-20 12:30 | NUR ---
PATIENT UP AND AMBULATING INDEPENDENTLY IN ROOM. PATIENT REPORTS TO THIS RN THAT HE IS AGREEABLE TO GOING HOME TODAY IF DR TINAJERO REMOVES HIS SHIRIN DRAIN. PATIENT REPORTS INCISIONAL/ABDOMINAL PAIN RATED 7/10 - IV OFERMEV ADMINISTERED ORDERED. PATIENT CURRENTLY RESTING IN BED WHILE THIS IS INFUSING IN HIS RIGHT WRIST. NO OTHER REQUESTS, CALL LIGHT AND PERSONAL BELONGINGS IN REACH.
--- NOTE | 2025-01-20 12:54 | EKG ---
[facility] [address] [facility] [place], [place] [address] Signed Normal sinus rhythm Normal ECG No previous ECGs available Confirmed by Justin Wynne MD ([id number]) on 01/20/2025 12:54:41 PM Electronically Signed By: JUSTIN WYNNE MD 01/20/25 1254 PATIENT NAME: MAGALI ERVIN Electrocardiogram DATE OF : 55 PHYSICIAN: JUSTIN WYNNE MD REPORT #: [id number] REPORT IS CONFIDENTIAL AND NOT TO BE RELEASED WITHOUT AUTHORIZATION
[2025-01-20] MEDS ORDERED: OXYCODON-ACETA1 EAC2 PO (14:03)
[2025-01-20] MEDS ORDERED: PERCOCET 7.5-31 EACH PO (14:05)
[2025-01-20] MEDS ORDERED: MOTRIN IB200 MG PO (14:05)
[2025-01-20] MEDS ORDERED: TYLENOL EXTRA500 MG PO (14:05)
== END 2025-01-20 15:00 | disposition home or self-care (01) | DRG 356 ==
LOC: ED 11:06 → MS 17:56
PROVIDERS: Emergency Medicine; ADMIT Surgery; ATTEND Surgery
PROC: 0D9670Z Drainage of Stomach with Drainage Device, Via Natural or Artificial Opening (ICD-10-PCS; 2025-01-18)
PROC: 0W3H4ZZ Control Bleeding in Retroperitoneum, Percutaneous Endoscopic Approach (ICD-10-PCS; principal; 2025-01-18 14:45)
DX: K56.609 Unspecified intestinal obstruction, unspecified as to partial versus complete obstruction (principal); K68.3 Retroperitoneal hematoma; N21.0 Calculus in bladder; Z79.899 Other long term (current) drug therapy
CPT/HCPCS: 00800; 00840; 36415; 51798; 71045; 74018; 74177; 74250; 76942; 80048; 80053; 81001; 83690; 85025; 86850; 86900; 86901; 86922; 93005; 93010; 94762; J0131; J0330; J0690; J0696; J1100; J1171; J1650; J1885; J2003; J2270; J2405; J2704; J2795; J3010; J3490; J7030; J7121; Q9967

== ENCOUNTER 2025-02-28 05:52 | Day surgery (SDC) | payer MEDICARE, OTHER ==
[~2025-02-28] VITALS: Ht 182.9 cm; Wt 89.0 kg
[~2025-02-28 05:52] MED LIST changes: +CEFDINIR300 MG PO; +FISH OIL 1,0001 EAC6 PO; +LACTATED RINGER'S 1,000 ML IV SCH; +MOTRIN IB200 MG PO; +OXYCODON-ACETA1 EAC2 PO; +PERCOCET 7.5-31 EACH PO; +ROSUVASTATIN CA20 MG PO; +TYLENOL EXTRA500 MG PO; +VITAMIN D325 MCG PO
[2025-02-28 06:04] VITALS: BP 137/84
[2025-02-28] MEDS ORDERED: fentaNYL citrate 50 MCG/ML SDV IV PRN (07:00)
[2025-02-28] MEDS ORDERED: IBLOOD GLUCOSE TEST STRIP 1 EA TEST VI PRN ×2 (07:00)
[2025-02-28] MEDS ORDERED: NALOXONE HCL 0.4 MG SYR IV PRN (07:00)
[2025-02-28] MEDS ORDERED: LIDOCAINE HCL 1% 5 ML SDV INJ ONE (07:00)
[2025-02-28] MEDS ORDERED: CEFAZOLIN SODIUM 2 GM/20 ML SYR IV SCH (07:00)
[2025-02-28] MEDS ORDERED: LIDOCAINE HCL 2% 5 ML SDV ONE (07:04)
[2025-02-28] MEDS ORDERED: KETOROLAC TROMETHAMINE 30 MG/ML VIAL ONE (07:04)
[2025-02-28] MEDS ORDERED: fentaNYL citrate 100 MCG/2 ML VIAL ONE (07:08)
--- NOTE | 2025-02-28 07:40 | NUR ---
PT NOT AVAILABLE FOR VISIT. PROVIDED PRAYER.
[2025-02-28] MEDS ORDERED: HYDROmorphone HCL 1 MG/ML SYR IV PRN (07:45)
[2025-02-28] MEDS ORDERED: OXYCODONE/APAP 5/325 TAB PO PRN (07:45)
[2025-02-28] MEDS ORDERED: MORPHINE SULFATE 15 MG TABCR PO PRN (07:45)
[2025-02-28] MEDS ORDERED: HYOSCYAMINE SULFATE 0.375 MG TAB.ER.12H PO PRN (07:45)
[2025-02-28] MEDS ORDERED: PHENAZOPYRIDINE HCL 100 MG TAB PO ONE ×2 (07:45→10:30)
[2025-02-28] MEDS ORDERED: LACTATED RINGER'S 1,000 ML IV ONE (08:28)
--- NOTE | 2025-02-28 09:08 | NUR ---
02/28/25 0908 Meagan Niño 0901-PT ARRIVES TO PACU, VIA STRETCHER, RESTING SUPINE, PT NOT RESPONSIVE TO NOXIOUS STIMULI, OPA IN PLACE, VSS ON 6L VIA MASK, RR EVEN AND UNLABORED.
[2025-02-28 09:40] VITALS: BP 120/68
--- NOTE | 2025-02-28 09:43 | NUR ---
0935- PT ARRIVES TO DAY SURGERY FROM PACU. BEDSIDE REPORT RECIEVED FROM DORY MARMOLEJO WITH AT BEDSIDE. PT DENIES PAIN AND NAUSEA. PT SIPPING ON WATER. LR INFUSING. NO DRESSING IN PLACE. PT REPORTS FEELING LIKE HE MAY NEED TO VOID. DISCAHRGE CRITERIA DISCUSSED AND PT IS UNDERSTANDING. CALL LIGHT IN REACH AND BED IS LOCKED IN THE LOWEST POSITION. PT REQUESTING PUDDING THAT WILL BE PROVIDED.
[2025-02-28 10:45] VITALS: BP 133/69
--- NOTE | 2025-02-28 10:47 | NUR ---
1040- PT IS RESTING IN THE STRETCHER. CALL LIGHT IN REACH AND BED IS LOCKED IN THE LOWEST POSTION. PT DENIES PAIN AND NAUSEA. VITAL SIGNS OBTAINED. PT REPORTS HE MAY NEED TO USE THE RESTROOM. PT WAS ABLE TO EAT PUDDING AND SIP ON THE WATER WITH NO ISSUES. DISCHARGE INFORMATION GONE OVER, ALL QUESTIONS AND CONERNS ANSWERED.
--- NOTE | 2025-02-28 11:13 | NUR ---
1105- PT UP AT BEDSIDE WANTING TO USE THE RESTROOM. PT WAS ABLE TO AMBULATE TO RESTROOM WITH A STEADY AND EVEN GAIT. PT WAS ABLE TO VOID LESS THAN 25ML OF RED TINGED URINE. PT IS UNDERSTANDING THAT THAT DOES NOT MEET DISCHARGE CRITERIA. PT WAS ABLE TO AMBULATE BACK TO HIS ROOM SAFELY. PT REQUESTING TO GET INTO HIS OWN CLOTHES. PT GIVEN FRESH WATER.
[2025-02-28 11:34] VITALS: BP 138/79
--- NOTE | 2025-02-28 11:35 | NUR ---
1135- PT IS DRESSED AND SITTING AT THE BEDSIDE. IV IS LOCKED AT THIS TIME. VITAL SIGNS OBTAINED. PT SIPPING ON WATER. PT DENIES PAIN AND NAUSEA. CALL LIGHT IN REACH, BED IS LOCKED IN THE LOWEST POSTION.
[2025-02-28 12:27] VITALS: BP 138/84
[2025-02-28] MEDS ORDERED: SEVOFLURANE 250 ML BTL INH ONE (13:10)
--- NOTE | 2025-02-28 14:08 | NUR ---
1230- PT PROVIDED 100ML OF URINE IN URINAL. IV REMOVED. 1231-PT IS ABLE TO AMBULATE TO WHEELCHAIR WITH NO ISSUES. PT HAS ALL BELONGINGS. PRESCRIPTION IS WITH HIS . ALL QUESTIONS AND CONCERNS ANSWERED. PT DC FROM DAY SURGERY IN WHEELCHAIR AND IS ABLE TO TRANSFER TO FAMILY VEHICLE WITH NO ISSUES.
== END 2025-02-28 12:31 | disposition home or self-care (01) ==
LOC: DS 05:52
PROVIDERS: ATTEND Urology
PROC: 0TCB8ZZ Extirpation of Matter from Bladder, Via Natural or Artificial Opening Endoscopic (ICD-10-PCS; principal; 2025-02-28 07:30)
DX: N21.0 Calculus in bladder (principal); N40.1 Benign prostatic hyperplasia with lower urinary tract symptoms; Z87.891 Personal history of nicotine dependence; Z53.8 Procedure and treatment not carried out for other reasons
CPT/HCPCS: 00910; J0690; J1885; J2003; J2405; J2704; J3010; J7121